=== PATIENT | male | born 1945 | race Caucasian/White ===

== ENCOUNTER 2019-09-10 17:51 | Emergency (ER) | payer MEDICARE, OTHER ==
[~2019-09-10] VITALS: Ht 170.2 cm; Wt 119.7 kg
--- NOTE | 2019-09-10 18:00 | NUR ---
patient Gavin, from home, c/o sob for weeks, nitro spray x 5 given PLANS EXAMINER. On 02 @2lpm via nc, connected to the monitor and pulse ox. kept comfortable, will continue to monitor accordingly.
[2019-09-10] MEDS ORDERED: ASPI-1169 PO (18:18)
[2019-09-10] MEDS ORDERED: METO1TAB10 PO (18:18)
[2019-09-10] MEDS ORDERED: AMLO10TA7 PO (18:18)
[2019-09-10] MEDS ORDERED: SIMV-49 PO (18:18)
[2019-09-10] MEDS ORDERED: OMEP20CA15 PO (18:18)
[2019-09-10] MEDS ORDERED: METF-440 PO (18:18)
[2019-09-10] MEDS ORDERED: IRBE150T28 PO (18:18)
[2019-09-10 18:24] LABS: BASOPHILS # (AUTO) 0.1 /CMM (0.0-0.2); BASOPHILS % (AUTO) 0.9 % (0.0-2.0); EOSINOPHILS % (AUTO) 2.6 % (0.0-6.0); HEMATOCRIT 34 % (39-51); HEMOGLOBIN 10.8 g/dL (13.5-17.5); LYMPHOCYTES # (AUTO) 0.9 /CMM (0.8-4.8); LYMPHOCYTES % (AUTO) 11.8 % (20.0-44.0); MEAN CORPUSCULAR HGB CONC 32 g/dl (31.0-36.0); MEAN CORPUSCULAR VOLUME 92 fL (80-96); MONOCYTES # (AUTO) 0.7 /CMM (0.1-1.30); MONOCYTES % (AUTO) 8.4 % (2.0-12.0); NEUTROPHILS # (AUTO) 5.9 /CMM (1.8-8.9); NEUTROPHILS % (AUTO) 76.3 % (43.0-81.0); PLATELET COUNT (AUTO) 223 /CMM (150-450); RED BLOOD CELL COUNT(AUTO) 3.66 MIL/uL (4.5-6.0); WHITE BLOOD COUNT (AUTO) 7.8 K/uL (4.3-11.0)
--- NOTE | 2019-09-10 18:30 | NUR ---
missile tracking technician at bedside for exam
--- NOTE | 2019-09-10 18:32 | NUR ---
CALLED NURSING SUP FOR TELE BED.
[2019-09-10 18:46] LABS: ALANINE AMINOTRANSFERASE 10 U/L (12-78); ALBUMIN 3.2 g/dL (3.4-5.0); ALKALINE PHOSPHATASE 97 U/L (46-116); ASPARTATE AMINOTRANSFERASE 12 U/L (15-37); B-TYPE NATRIURETIC PEPTIDE 2118 PG/ML (0-125); BILIRUBIN,DIRECT 0.4 mg/dL (0.0-0.2); BILIRUBIN,TOTAL 0.9 mg/dL (0.2-1.0); CALCIUM, SERUM 9.4 mg/dL (8.5-10.1); CARBON DIOXIDE 28 mmol/L (21-32); GLUCOSE 140 mg/dL (74-106); TOTAL PROTEIN, SERUM 7.5 g/dL (6.4-8.2); UREA NITROGEN, BLOOD 24 mg/dL (7-18)
[2019-09-10 19:01] LABS: CHLORIDE 106 mmol/L (98-107); POTASSIUM 4.1 mmol/L (3.5-5.1); SODIUM SERUM 142 mmol/L (136-145); THYROID STIMULATING HORMONE 9.417 uIU/mL (0.358-3.74)
--- NOTE | 2019-09-10 19:15 | NUR ---
REPORT REC'D FROM ЕКАТЕРИНА PATRICIO FOR MICHELLE.
[2019-09-10] MEDS ORDERED: Magnesium 1GM/D5W 100ML PREMIX 100 ML IV ONE (19:30)
[2019-09-10] MEDS ORDERED: Magnesium 1GM/D5W 100ML PREMIX 100 ML IV SCH (19:30)
[2019-09-10] MEDS ORDERED: Magnesium 1GM/D5W 100ML PREMIX 100 ML IV STA (19:32)
--- NOTE | 2019-09-10 19:37 | NUR ---
CLARIFIED MAGNESIUM ORDER WITH DR SCHMITZ. 1 GM IV OVER 1 HR.
--- NOTE | 2019-09-10 19:40 | NUR ---
DR SCHMITZ IS AT THE BEDSIDE SPEAKING TO THE PT AND FAMILY.
[2019-09-10] MEDS ORDERED: FUROSEMIDE 40 MG/4 ML VIAL ONE (19:50)
--- NOTE | 2019-09-10 19:55 | NUR ---
PT REC'ING MEDICATION ORDERED.
[2019-09-10] MEDS ORDERED: FUROSEMIDE 40 MG/4 ML VIAL IV ONE (20:00)
--- NOTE | 2019-09-10 20:05 | NUR ---
DR SCHMITZ IS AT THE BEDSIDE.
--- NOTE | 2019-09-10 20:16 | NUR ---
URINAL EMPTIED. APPROX 200 ML YELLOW URINE OUTPUT NOTED.
--- NOTE | 2019-09-10 20:18 | NUR ---
PT'S HR IS RANGING FROM 109-125. PT'S RESP ARE LABORED AND PT IS TACHYPNEIC AT [address] SCHMITZ IS NOTIFIED.
--- NOTE | 2019-09-10 20:20 | NUR ---
PT ACCEPTED TO [facility], BED 210-A. # FOR REPORT [phone].
--- NOTE | 2019-09-10 20:26 | NUR ---
[facility] ETA [id number]
--- NOTE | 2019-09-10 20:26 | NUR ---
PT IS USING THE URINAL.
--- NOTE | 2019-09-10 20:29 | NUR ---
CALLING REPORT TO ЕКАТЕРИНА MCFARLAND AT [facility].
--- NOTE | 2019-09-10 20:38 | NUR ---
REPORT GIVEN TO RICHELLE MILLER AT [facility]
--- NOTE | 2019-09-10 20:44 | NUR ---
URINAL EMPTIED AGAIN. APPROX 225ML YELLOW URINE OUTPUT NOTED.
--- NOTE | 2019-09-10 21:03 | NUR ---
URINAL EMPTIED AGAIN. APPROX 200 ML PALE YELLOW URINE OUTPUT NOTED.
--- NOTE | 2019-09-10 21:28 | NUR ---
PT IS USING THE URINAL. PT'S FAMILY RETURNED.
--- NOTE | 2019-09-10 21:41 | NUR ---
URINAL EMPTIED AGAIN. APPROX 375 ML PALE YELLOW URINE OUTPUT NOTED.
--- NOTE | 2019-09-10 22:11 | NUR ---
200ML URINE OUTPUT NOTED. URINAL EMPTIED.
--- NOTE | 2019-09-10 22:15 | NUR ---
REPORT GIVEN TO NIALL RAMIREZ.
--- NOTE | 2019-09-10 22:21 | NUR ---
URINAL EMPTIED PRIOR TO PT LEAVING. APPROX 175ML PALE URINE OUTPUT NOTED. TOTAL OUTPUT IS 1275ML. PT REC'D A FRESH URINAL FOR THE TRANSPORT.
[2019-09-10 22:22] VITALS: BP 138/75
--- NOTE | 2019-09-10 22:26 | NUR ---
PT BEING TRANFERED OUT VIA AMBULANCE. VSS.
== END 2019-09-10 22:26 ==
LOC: ER 17:53
DX: J96.00 Acute respiratory failure, unspecified whether with hypoxia or hypercapnia (principal); I11.0 Hypertensive heart disease with heart failure; I50.9 Heart failure, unspecified; E03.9 Hypothyroidism, unspecified; E83.42 Hypomagnesemia; I48.91 Unspecified atrial fibrillation; D64.9 Anemia, unspecified; E11.9 Type 2 diabetes mellitus without complications; E78.5 Hyperlipidemia, unspecified; Z79.82 Long term (current) use of aspirin; Z79.899 Other long term (current) drug therapy
CPT/HCPCS: 36415; 71045; 80048; 80076; 83735; 83880; 84439; 84443; 84484; 85025; 85378; 85730; 87081; 93005 ×3; 93970; 96365; 96375; 99291; J1940; J3475

== ENCOUNTER 2021-05-31 09:06 | Inpatient (IN) | payer MEDICARE, BC ==
[~2021-05-31] VITALS: Ht 167.6 cm; Wt 102.1 kg
[~2021-05-31 09:06] MED LIST: AMLO-213 PO; ASPI-1169 PO; IRBE150T28 PO; METF-440 PO; METO1TAB10 PO; OMEP20CA15 PO; SIMV-49 PO
--- NOTE | 2021-05-31 09:17 | NUR ---
TO ER 4, LEONA [id number] "From Home C/O Feeling sick last couple weeks diarrhea/Nausea, AAOX3, breathing even and non labored, connected to monitor
[2021-05-31 09:45] LABS: BASOPHILS # (AUTO) 0.1 K/uL (0.0-0.2); EOSINOPHILS % (AUTO) 1.9 % (0.0-6.0); HEMATOCRIT 33 % (39-51); HEMOGLOBIN 10.6 g/dL (13.5-17.5); LYMPHOCYTES # (AUTO) 1.6 K/uL (0.8-4.8); LYMPHOCYTES % (AUTO) 15.7 % (20.0-44.0); MEAN CORPUSCULAR HGB CONC 32 g/dl (31.0-36.0); MEAN CORPUSCULAR VOLUME 99 fL (80-96); MONOCYTES # (AUTO) 0.6 K/uL (0.1-1.30); MONOCYTES % (AUTO) 5.8 % (2.0-12.0); NEUTROPHILS # (AUTO) 7.5 K/uL (1.8-8.9); NEUTROPHILS % (AUTO) 75.6 % (43.0-81.0); PLATELET COUNT (AUTO) 231 K/uL (150-450); RED BLOOD CELL COUNT(AUTO) 3.32 MIL/uL (4.5-6.0); WHITE BLOOD COUNT (AUTO) 9.9 K/uL (4.3-11.0)
--- NOTE | 2021-05-31 10:02 | NUR ---
DR CASIANO AT BEDSIDE
--- NOTE | 2021-05-31 10:06 | NUR ---
URINE COLLECTED AND SENT TO LAB
[2021-05-31 10:22] LABS: BILIRUBIN,URINE NEGATIVE (NEGATIVE); COLOR,URINE YELLOW (YELLOW); LEUKOCYTE ESTERASE ,URINE NEGATIVE (NEGATIVE); NITRITE, URINE NEGATIVE (NEGATIVE); PROTEIN,URINE NEGATIVE (NEGATIVE); UGLUCOSE NEGATIVE (NEGATIVE); UROBILINOGEN,URINE 0.2 EU/dL (0.2)
[2021-05-31 10:22] LABS: CARBON DIOXIDE 13 mmol/L (21-32); CHLORIDE 99 mmol/L (98-107); GLUCOSE 122 mg/dL (74-106); POTASSIUM 5.8 mmol/L (3.5-5.1); SODIUM SERUM 134 mmol/L (136-145)
[2021-05-31 10:27] LABS: ALANINE AMINOTRANSFERASE 33 U/L (12-78); ALKALINE PHOSPHATASE 388 U/L (46-116); ASPARTATE AMINOTRANSFERASE 45 U/L (15-37); BILIRUBIN,DIRECT 0.3 mg/dL (0.0-0.2); BILIRUBIN,TOTAL 0.7 mg/dL (0.2-1.0); LIPASE 342 U/L (73-393); TOTAL PROTEIN, SERUM 7.9 g/dL (6.4-8.2)
[2021-05-31 10:33] LABS: CREATININE 8.2 mg/dL (0.6-1.3); UREA NITROGEN, BLOOD 156 mg/dL (7-18)
--- NOTE | 2021-05-31 10:41 | NUR ---
COVID ANTIGEN SWAB SENT TO LAB
--- NOTE | 2021-05-31 10:51 | NUR ---
CALLED NEPHROLOGY [phone] DR. PAN FERRARA.
[2021-05-31] MEDS ORDERED: Calcium Gluconate 1GM/10ML 4.65 MEQ in IV D5W 50 ML IV ONE (11:00)
[2021-05-31 11:05] LABS: MAGNESIUM 2.3 mg/dL (1.8-2.4); PHOSPHORUS 6.6 mg/dL (2.5-4.9)
--- NOTE | 2021-05-31 11:15 | NUR ---
BACK FROM CT
[2021-05-31] MEDS ORDERED: APIX5TAB PO (11:33)
[2021-05-31] MEDS ORDERED: LOSA100T31 PO (11:33)
[2021-05-31] MEDS ORDERED: PANT40TA49 PO (11:33)
[2021-05-31] MEDS ORDERED: CHOL100062 PO (11:33)
[2021-05-31] MEDS ORDERED: FERR325T23 PO (11:33)
[2021-05-31] MEDS ORDERED: BUME2TAB7 PO (11:33)
[2021-05-31] MEDS ORDERED: LEVO125T8 PO (11:33)
[2021-05-31] MEDS ORDERED: ASCO-352 PO (11:33)
[2021-05-31] MEDS ORDERED: METO-358 PO (11:33)
[2021-05-31] MEDS ORDERED: MAGN400T26 PO (11:33)
[2021-05-31] MEDS ORDERED: SENN-261 PO (11:33)
[2021-05-31] MEDS ORDERED: THIA100T74 PO (11:33)
[2021-05-31] MEDS ORDERED: ATOR40TA PO (11:33)
--- NOTE | 2021-05-31 11:55 | NUR ---
[facility] CALLED CURTAIN FELLER BLINDSTITCH PAGED.
--- NOTE | 2021-05-31 11:56 | NUR ---
AGAIN CALLED NEPHROLOGY [phone] DR. PAN FERRARA.
[2021-05-31] MEDS ORDERED: IV NS 0.9% 1,000 ML BAG IV ONE (12:30)
[2021-05-31] MEDS ORDERED: SENNOSIDES 8.6 MG TABLET PO PRN (12:30)
--- NOTE | 2021-05-31 12:49 | NUR ---
MRSA SWAB COLLECTED AND SENT TO LAB. PATIENT'S BELONGINGS LIST DONE.
[2021-05-31] MEDS ORDERED: Z GUARD REMEDY 2 OZ OINT TP PRN (13:00)
[2021-05-31] MEDS ORDERED: IV NS 0.9% 1,000 ML IV PRN (13:00)
[2021-05-31] MEDS ORDERED: ZOLPIDEM TARTRATE 5 MG TABLET PO PRN (13:00)
[2021-05-31] MEDS ORDERED: MAGNESIUM HYDROXIDE 30 ML UDC PO PRN (13:00)
[2021-05-31] MEDS ORDERED: DEXTROSE 50%-WATER 50 ML DISP.SYRIN IV PRN (13:00)
[2021-05-31] MEDS ORDERED: MAG HYDROX/AL HYDROX/SIMETH 30 ML UDC PO PRN (13:00)
[2021-05-31] MEDS ORDERED: ONDANSETRON HCL/PF 4 MG/2 ML VIAL IVP PRN (13:00)
--- NOTE | 2021-05-31 13:12 | NUR ---
US AT BEDSIDE
--- NOTE | 2021-05-31 16:58 | NUR ---
room 314-1
[2021-05-31] MEDS ORDERED: MAGNESIUM OXIDE 400 MG TABLET PO SCH (17:00)
--- NOTE | 2021-05-31 17:22 | NUR ---
REPORT GIVEN TO LINDA WILLAMS. PT AWAITING TRANSFER TO FLOOR.
--- NOTE | 2021-05-31 17:30 | NUR ---
DELIVERY RN NOTE- 75 Y/O MALE BROUGHT IN FROM HOME W INCREASING MALAISE, DIARRHEA AND GENERAL DECLINE IN HEALTH. PT W PMHX - CHF, DIABETES, HTN, HLD, . PT AMBULATORY W ASSIST, VS STABLE ON TELE MONITOR SR W PAC /70'S. IV TO LFA 20G. PT ON RENAL STANDARD DIET, LABS - BUN 156 AND CREATININE 18.2. POSS HD TOMORROW. PT IS ALERT ORIENTED X 4, INTERACTIVE CALM AND COOPERATIVE. IN NO DISTRESS, DENIES PAIN OR DISCOMFORT OF ANY KIND. SIDE RAILS UP, BED LOCKED CALL LIGHT IN REACH, NEEDS ATTENDED, ORDERS RECEIVED AND COMPLIED WITH.
[2021-05-31] MEDS ORDERED: APIXABAN 2.5 MG TABLET PO SCH (18:00)
[2021-05-31] MEDS: IV NS 0.9% 1,000 ML IV PRN (18:40)
[2021-05-31] MEDS: BLOOD SUGAR DIAGNOSTIC 1 EACH STRIP VI SCH ×2 (18:49→22:05)
[2021-05-31] MEDS: ATORVASTATIN 40 MG TABLET PO SCH (18:53)
--- NOTE | 2021-05-31 19:30 | NUR ---
RN OPENING NOTE PATIENT IN BED AWAKE. PATIENT IS ABLE TO MAKE NEEDS KNOWN. A/O X 4. BREATHING EVEN AND UNLABORED, TOLERATING ROOM AIR. PATIENT IS SR 70S WITH BBB. PATIENT'S IV ACCESS PATENT AND INTACT WITH NS AT 100 ML/HR. SAFETY MEASURES IN PLACE: BED LOCKED AND IN LOWEST POSITION, CALL LIGHT WITHIN REACH. SIDE RAILS UP. WILL MONITOR PATIENT CLOSELY.
[2021-05-31 20:00] VITALS: BP 126/48
--- NOTE | 2021-05-31 20:00 | NUR ---
RN NOTE WAS NOTIFIED BY DR. MIRANDA VERBALLY THAT SHE HAS D/C'D THE ELIQUIS AND SUGGESTS FOR PATIENT ON HEPARIN. ALSO STATES THAT THE PATIENT WILL BE HAVING AN EGD, BUT SINCE PATIENT RECEIVED ELIQUIS TODAY, PATIENT IS UNABLE TO HAVE PROCEDURE BECAUSE ELIQUIS NEEDS TO BE HELD AT LEAST 48HRS PRIOR TO PROCEDURE. DR. MIRANDA STATES TO CONSULT CARDIO AND PMD. NOTIFIED RANULFO BARCLAY, INSTRUCTIONS WERE TO CONSULT WITH DR. SUAREZ, CLERK TELEVISION PRODUCTION.
--- NOTE | 2021-05-31 20:01 | NUR ---
RN NOTE NOTIFIED DR. SUAREZ REGARDING HEPARIN DOSING AND PLANNING OF EGD. AWAITING RESPONSE AND ORDERS.
--- NOTE | 2021-05-31 20:15 | NUR ---
RN NOTE DR. SUAREZ SAID THAT IT WILL BE UP TO DR. MIRANDA REGARDING HEPARIN DOSING AND EXPRESSED THAT PATIENT "NEEDS TO BE ON NOTHING FOR TWO DAYS" TO PREPARE FOR EGD. NOTIFIED DR. MIRANDA REGARDING DR. SUAREZ'S RESPONSE.
--- NOTE | 2021-05-31 20:30 | NUR ---
RN NOTE DR. MIRANDA DID NOT HAVE ANY ORDERS FOR HEPARIN. SHE SAID FOR PATIENT NOT TO BE ANY ANTICOAGULANTS FOR THE NEXT TWO DAYS AND THEN DECIDE AFTER THE TWO DAYS. CHARGE NURSE VANDANA JUAREZ.
[2021-05-31] MEDS: *INSULIN REGULAR(HUMULIN R)HUM 100 UNIT/ML VIAL SQ PRN (21:53)
--- NOTE | 2021-05-31 22:05 | NUR ---
RN NOTE OBTAINED AND WITNESSED CONSENT FOR CT CHEST WITHOUT CONTRAST.
[2021-06-01] VITALS: BP 101/46
[2021-06-01 04:50] VITALS: BP 101/46
[2021-06-01] MEDS: IV NS 0.9% 1,000 ML IV PRN (05:37)
[2021-06-01] MEDS: BLOOD SUGAR DIAGNOSTIC 1 EACH STRIP VI SCH ×4 (06:42→21:55)
--- NOTE | 2021-06-01 06:50 | NUR ---
RN CLOSING NOTE PATIENT IN BED AWAKE. PATIENT IS ABLE TO MAKE NEEDS KNOWN. A/O X 4. BREATHING EVEN AND UNLABORED, TOLERATING ROOM AIR. PATIENT IS SR 72 WITH BBB. PATIENT'S IV ACCESS PATENT AND INTACT WITH NS AT 100 ML/HR. PATIENT DOES NOT REPORT ANY PAIN OR DISCOMFORT. SAFETY MEASURES IN PLACE: BED LOCKED AND IN LOWEST POSITION, CALL LIGHT WITHIN REACH. SIDE RAILS UP. ALL NEEDS MET AND ATTENDED, ALL ORDERS CARRIED OUT. WILL ENDORSE TO DAY SHIFT NURSE FOR MICHELLE.
[2021-06-01 07:32] LABS: IRON, SERUM 37 ug/dl (50-175); TOTAL IRON BINDING CAPACITY 155 ug/dl (250-450)
[2021-06-01 07:46] LABS: PROSTATE SPECIFIC ANTIGEN SCR 4.19 ng/mL (0.00-4.00); THYROID STIMULATING HORMONE 1.392 uIU/mL (0.358-3.74)
[2021-06-01 07:52] LABS: BASOPHILS # (AUTO) 0.1 K/uL (0.0-0.2); BASOPHILS % (AUTO) 1.1 % (0.0-2.0); HEMATOCRIT 31 % (39-51); LYMPHOCYTES # (AUTO) 1.3 K/uL (0.8-4.8); LYMPHOCYTES % (AUTO) 15.5 % (20.0-44.0); MEAN CORPUSCULAR HGB CONC 32 g/dl (31.0-36.0); MEAN CORPUSCULAR VOLUME 102 fL (80-96); MONOCYTES # (AUTO) 0.6 K/uL (0.1-1.30); MONOCYTES % (AUTO) 6.8 % (2.0-12.0); NEUTROPHILS # (AUTO) 6.3 K/uL (1.8-8.9); NEUTROPHILS % (AUTO) 73.6 % (43.0-81.0); PLATELET COUNT (AUTO) 210 K/uL (150-450); RED BLOOD CELL COUNT(AUTO) 3.02 MIL/uL (4.5-6.0); WHITE BLOOD COUNT (AUTO) 8.6 K/uL (4.3-11.0)
[2021-06-01 07:56] LABS: CHOLESTEROL 80 mg/dL (<200); CREATINE KINASE, TOTAL 31 U/L (39-308); FERRITIN 371 ng/mL (8-388); HDL CHOLESTEROL 33 mg/dL (40-60); LDL 40 mg/dL (0-99); TRIGLYCERIDES 116 mg/dL (30-150)
[2021-06-01 08:00] VITALS: BP 126/56
--- NOTE | 2021-06-01 08:02 | NUR ---
TURNTABLE OPERATOR OPENING NOTE PATIENT IN BED AWAKE. A/O X 4, ABLE TO MAKE NEEDS KNOWN. ON ROOM AIR, BREATHING EVENLY AND UNLABORED. PATIENT IS SR 80. IV ACCESS ON LFA #20G NS AT 100 ML/HR, INTACT AND PATENT. PATIENT DOES NOT REPORT ANY PAIN OR DISCOMFORT. SAFETY MEASURES IN PLACE: BED LOCKED AND IN LOWEST POSITION, CALL LIGHT WITHIN REACH. SIDE RAILS UP X 2. WILL CONTINUE TO MONITOR.
[2021-06-01 08:13] LABS: ALANINE AMINOTRANSFERASE 36 U/L (12-78); ALBUMIN 2.7 g/dL (3.4-5.0); ALKALINE PHOSPHATASE 355 U/L (46-116); ASPARTATE AMINOTRANSFERASE 45 U/L (15-37); BILIRUBIN,DIRECT 0.3 mg/dL (0.0-0.2); BILIRUBIN,TOTAL 0.5 mg/dL (0.2-1.0); CALCIUM, SERUM 8.7 mg/dL (8.5-10.1); CARBON DIOXIDE 12 mmol/L (21-32); CHLORIDE 106 mmol/L (98-107); CREATININE 7.3 mg/dL (0.6-1.3); GLUCOSE 98 mg/dL (74-106); PHOSPHORUS 5.9 mg/dL (2.5-4.9); POTASSIUM 5.5 mmol/L (3.5-5.1); SODIUM SERUM 138 mmol/L (136-145); TOTAL PROTEIN, SERUM 6.9 g/dL (6.4-8.2)
[2021-06-01 08:16] LABS: UREA NITROGEN, BLOOD 145 mg/dL (7-18)
[2021-06-01] MEDS: PANTOPRAZOLE 40 MG TABLET.DR PO SCH (08:24)
[2021-06-01] MEDS: THIAMINE HCL 100 MG TABLET PO SCH (08:24)
[2021-06-01] MEDS: FERROUS SULFATE (325 MG) 325 MG/TAB TABLET PO SCH (08:24)
[2021-06-01] MEDS: LEVOTHYROXINE SODIUM 125 MCG TABLET PO SCH (08:24)
[2021-06-01] MEDS: CHOLECALCIFEROL 1,000 UNIT TABLET (VIT D3) PO SCH (08:24)
[2021-06-01] MEDS: METOPROLOL SUCCINATE 50 MG TAB.SR.24H PO SCH (08:25)
[2021-06-01] MEDS: ASCORBIC ACID 500 MG TABLET PO SCH (08:25)
[2021-06-01] MEDS ORDERED: ANESTHESIA TRAY IN PYXIS 1 EA TRAY MC ONE (11:26)
[2021-06-01 12:00] VITALS: BP 124/61
--- NOTE | 2021-06-01 14:44 | NUR ---
RN NOTE ORDERED CLEAR LIQUID DIET. PER RANULFO, DRY DIP WORKER KEEP PATIENT ON NPO POST MIDNIGHT. EGD SCHEDULED AT 10:00 AM TOMORROW.
[2021-06-01 16:00] VITALS: BP 132/63
[2021-06-01] MEDS: Sodium Bicarbonate 100 MEQ in IV D5W 1,000 ML IV SCH (16:15)
[2021-06-01] MEDS: ATORVASTATIN 40 MG TABLET PO SCH (17:22)
--- NOTE | 2021-06-01 18:47 | NUR ---
RN CLOSING NOTE PATIENT IN BED AWAKE. A/O X 4. ALL NEEDS HAVE BEEN MET AND ATTENDED. ON ROOM AIR, BREATHING EVENLY AND UNLABORED. PATIENT IS SR 73. IV ACCESS ON LFA #20G NA BICARB IN D5W RUNNING AT 100 ML/HR, INTACT AND PATENT. PATIENT DOES DENIES ANY PAIN OR DISCOMFORT AT THIS TIME. DUE MEDS GIVEN, ORDERD. SAFETY MEASURES IN PLACE: BED LOCKED AND IN LOWEST POSITION, CALL LIGHT WITHIN REACH, SIDE RAILS UP X 2. WILL ENDORSE TO FISHING BOAT MATE NURSE FOR MICHELLE.
--- NOTE | 2021-06-01 19:00 | NUR ---
PEA VINER MECHANIC OPENING NOTE RECEIVED PT RESTING IN BED. A/O X4, PT STABLE ON ROOM AIR. NO SOB NOTED, NO S/S OF RESPIRATORY DISTRESS. PT IS ON EXTERNAL LAMINATE FLOOR INSTALLER READING SINUS ARRHYTHMIA @ 63. NO C/O PAIN AT THIS TIME. IV ACCESS IN LEFT FOREARM G#20, INTACT, PATENT, AND FLUSHING WELL. SAFETY MEASURES MAINTAINED AT ALL TIMES. BED IN LOWEST, LOCKED POSITION, HOB ELEVATED, SIDE RAILS UP X2. CALL LIGHT AND TABLE WITHIN REACH. WILL CONTINUE WITH PLAN OF CARE.
[2021-06-01 20:00] VITALS: BP 125/67
--- NOTE | 2021-06-01 21:55 | NUR ---
BS 108. NO INSULIN GIVEN PER SLIDING SCALE .
[2021-06-01] MEDS: *INSULIN REGULAR(HUMULIN R)HUM 100 UNIT/ML VIAL SQ PRN (21:56)
[2021-06-02] VITALS (7 sets, daily range): BP systolic 112–154; BP diastolic 49–68
[2021-06-02] MEDS: Sodium Bicarbonate 100 MEQ in IV D5W 1,000 ML IV SCH ×3 (02:12→22:20)
[2021-06-02] MEDS: BLOOD SUGAR DIAGNOSTIC 1 EACH STRIP VI SCH ×4 (06:35→22:07)
[2021-06-02] MEDS: INSULIN REGULAR, HUMAN 100 UNIT/ML 3 ML VIAL SQ PRN (06:36)
--- NOTE | 2021-06-02 06:46 | NUR ---
@0630 pts OU=[id number], no insulin coverage..
[2021-06-02 06:50] LABS: BASOPHILS # (AUTO) 0.1 K/uL (0.0-0.2); EOSINOPHILS % (AUTO) 3.1 % (0.0-6.0); HEMATOCRIT 31 % (39-51); HEMOGLOBIN 10.2 g/dL (13.5-17.5); LYMPHOCYTES # (AUTO) 1.1 K/uL (0.8-4.8); MEAN CORPUSCULAR HGB CONC 33 g/dl (31.0-36.0); MEAN CORPUSCULAR VOLUME 99 fL (80-96); MONOCYTES # (AUTO) 0.6 K/uL (0.1-1.30); MONOCYTES % (AUTO) 7.4 % (2.0-12.0); NEUTROPHILS # (AUTO) 5.5 K/uL (1.8-8.9); NEUTROPHILS % (AUTO) 73.5 % (43.0-81.0); PLATELET COUNT (AUTO) 167 K/uL (150-450); RED BLOOD CELL COUNT(AUTO) 3.11 MIL/uL (4.5-6.0); WHITE BLOOD COUNT (AUTO) 7.4 K/uL (4.3-11.0)
[2021-06-02] MEDS: LEVOTHYROXINE SODIUM 125 MCG TABLET PO SCH (07:30)
[2021-06-02] MEDS: PANTOPRAZOLE 40 MG TABLET.DR PO SCH (07:30)
--- NOTE | 2021-06-02 07:30 | NUR ---
SCANNING SUPERVISOR OPENING NOTES RECEIVED PATIENT AWAKE ON BED AND A/O X4. ON ROOM AIR TOLERATING WELL WITH NO SOB NOTED. NOT IN DISTRESS. WITH NO COMPLAINTS OF PAIN OR DISCOMFORT AT THIS TIME. WITH IV ACCESS AT LEFT FOREARM G20 WITH IVF NS AT 100ML/HR, PATENT AND INTACT. FOR ESOPHAGOGASTROSCOPY TODAY. ON NPO. SAFETY MEASURES IN PLACE. CALL LIGHT WITHIN REACH. BED ON LOWEST AND LOCKED POSITION, SIDE RAILS UP X2. WILL CONTINUE TO MONITOR.
[2021-06-02 07:36] LABS: CALCIUM, SERUM 8.8 mg/dL (8.5-10.1); CARBON DIOXIDE 16 mmol/L (21-32); CHLORIDE 105 mmol/L (98-107); CREATININE 6.2 mg/dL (0.6-1.3); GLUCOSE 120 mg/dL (74-106); MAGNESIUM 1.9 mg/dL (1.8-2.4); PHOSPHORUS 5.3 mg/dL (2.5-4.9); POTASSIUM 5.2 mmol/L (3.5-5.1); SODIUM SERUM 138 mmol/L (136-145)
[2021-06-02 07:57] LABS: UREA NITROGEN, BLOOD 133 mg/dL (7-18)
[2021-06-02 08:06] LABS: AFP, TUMOR MARKER <0.9 ng/mL (0.0-8.3)
[2021-06-02] MEDS: FERROUS SULFATE (325 MG) 325 MG/TAB TABLET PO SCH (09:00)
[2021-06-02] MEDS: ASCORBIC ACID 500 MG TABLET PO SCH (09:00)
[2021-06-02] MEDS: THIAMINE HCL 100 MG TABLET PO SCH (09:00)
[2021-06-02] MEDS: CHOLECALCIFEROL 1,000 UNIT TABLET (VIT D3) PO SCH (09:00)
[2021-06-02] MEDS: METOPROLOL SUCCINATE 50 MG TAB.SR.24H PO SCH (09:00)
[2021-06-02 09:07] LABS: CARBOHYDRATE AG 19-9 181 U/mL (0-35)
[2021-06-02 13:06] LABS: *SPE A/G RATIO 0.8 (0.7-1.7); *SPE ALPHA-1-GLOBULIN 0.4 g/dL (0.0-0.4); *SPE ALPHA-2-GLOBULIN 0.8 g/dL (0.4-1.0); *SPE BETA GLOBULIN 0.8 g/dL (0.7-1.3); *SPE M-SPIKE Not Observed g/dL (Not Observed)
[2021-06-02] MEDS: ATORVASTATIN 40 MG TABLET PO SCH (17:51)
--- NOTE | 2021-06-02 18:41 | NUR ---
OVERLOCK SEWING MACHINE OPERATOR CLOSING NOTES PATIENT AWAKE ON BED AND A/O X4. ON ROOM AIR TOLERATING WELL WITH NO SOB NOTED. NOT IN DISTRESS. WITH NO COMPLAINTS OF PAIN OR DISCOMFORT AT THIS TIME. WITH IV ACCESS AT LEFT FOREARM G20 WITH IVF D5W WITH SODIUM BICARB AT 100ML/HR, PATENT AND INTACT. ON TELE MONITOR CURRENTLY READING SINUS RHYTHM AT 80BPM. SAFETY MEASURES IN PLACE. CALL LIGHT WITHIN REACH. BED ON LOWEST AND LOCKED POSITION, SIDE RAILS UP X2. WILL ENDORSE TO NEXT SHIFT FOR MICHELLE.
--- NOTE | 2021-06-02 20:30 | NUR ---
CERTIFIED ORTHOTIST/PEDORTHIST OPENING NOTES: RECEIVED PATIENT AWAKE IN BED, BED IN LOW POSITION, CALL LIGHTS WITHIN REACH, NO COMPLAIN OF PAIN AND DISCOMFORT AQT THIS TIME, PATIENT IS A/OX4 AMBULATORY, ON BRP, ABLE TO MAKE NEEDS KNOWN, WITH IV LINE AT LFO #20 WIT NA HCO3 IN D5W 1000ML @100ML/HR INFUSING WELL, PATIENT KEPT CLEAN AND DRY ALL NEEDS MET, WILL CONTINUE TO MONITOR.
[2021-06-03 04:01] VITALS: BP 127/62
[2021-06-03] MEDS: ACETAMINOPHEN 325 MG TABLET PO PRN (04:01)
[2021-06-03 06:22] LABS: BASOPHILS # (AUTO) 0.1 K/uL (0.0-0.2); EOSINOPHILS % (AUTO) 3.1 % (0.0-6.0); HEMATOCRIT 26 % (39-51); HEMOGLOBIN 8.8 g/dL (13.5-17.5); LYMPHOCYTES # (AUTO) 0.9 K/uL (0.8-4.8); LYMPHOCYTES % (AUTO) 11.4 % (20.0-44.0); MEAN CORPUSCULAR HGB CONC 34 g/dl (31.0-36.0); MEAN CORPUSCULAR VOLUME 97 fL (80-96); MONOCYTES # (AUTO) 0.7 K/uL (0.1-1.30); MONOCYTES % (AUTO) 9.1 % (2.0-12.0); NEUTROPHILS # (AUTO) 5.7 K/uL (1.8-8.9); NEUTROPHILS % (AUTO) 75.4 % (43.0-81.0); PLATELET COUNT (AUTO) 152 K/uL (150-450); WHITE BLOOD COUNT (AUTO) 7.6 K/uL (4.3-11.0)
--- NOTE | 2021-06-03 06:48 | NUR ---
BRASS AND WIND INSTRUMENT REPAIRER CLOSING NOTES: PATIENT SLEEP IN BED COMFORTABLY, BED IN LOW POSITION, CALL LIGHTS WITHIN REACH, O COMPLAIN OF PAIN AND DISCOMFORT AT THIS TIME, PATIENT IS A/O X4 ABLE TO EXPRESS NEEDS, BRP WITH SUPERVISION, WITH IV LINE AT LFA #20 WITH ONGOING NA HCO3 ON D5W 1000ML @100ML PER HOUR INFUSING WELL, PATIENT ON TELEMONITORING SR-70 WITH BBB AND ARRHYTHMIA, ASYMPTOMATIC PATIENT KEPT CLEAN AND DRY, ALL NEEDS MET, ENDORSE TO INCOMING SHIFT.
[2021-06-03 06:52] LABS: ALANINE AMINOTRANSFERASE 32 U/L (12-78); ALBUMIN 2.2 g/dL (3.4-5.0); ALKALINE PHOSPHATASE 361 U/L (46-116); ASPARTATE AMINOTRANSFERASE 40 U/L (15-37); BILIRUBIN,TOTAL 0.6 mg/dL (0.2-1.0); CALCIUM, SERUM 8.1 mg/dL (8.5-10.1); CARBON DIOXIDE 18 mmol/L (21-32); CHLORIDE 105 mmol/L (98-107); CREATININE 5.7 mg/dL (0.6-1.3); GLUCOSE 129 mg/dL (74-106); MAGNESIUM 1.7 mg/dL (1.8-2.4); PHOSPHORUS 4.6 mg/dL (2.5-4.9); POTASSIUM 4.6 mmol/L (3.5-5.1); SODIUM SERUM 138 mmol/L (136-145); TOTAL PROTEIN, SERUM 6.1 g/dL (6.4-8.2)
[2021-06-03 07:11] LABS: UREA NITROGEN, BLOOD 113 mg/dL (7-18)
[2021-06-03] MEDS: BLOOD SUGAR DIAGNOSTIC 1 EACH STRIP VI SCH ×4 (07:30→21:11)
--- NOTE | 2021-06-03 07:30 | NUR ---
WELDING OPERATOR OPENING NOTES: RECEIVED PATIENT AWAKE IN BED, A/O X4. IN NO APPARENT DISTRESS NOTED BREATHING EVEN AND UNLABORED. ON ROOM AIR, TOLERATING WELL. NO COMPLAIN OF PAIN AND DISCOMFORT AT THIS TIME.PATIENT WITH IV LINE AT LFA #20 WITH ONGOING NA HCO3 ON D5W 1000ML @100ML PER/ HR, INFUSING WELL,.PATIENT ON TELEMONITORING WITH SR-88 WITH BBB, NO CARDIAC DISTRESS NOTED. BED ON LOWEST LOCKED POSITION. CALL LIGHT AND BEDSIDE TABLE WITHIN EASY REACH. SAFETY MEASURES IN PLACE. WILL CONTINUE TO MONITOR PT. ACCDGLY..
[2021-06-03 08:00] VITALS: BP 117/69
[2021-06-03] MEDS: CHOLECALCIFEROL 1,000 UNIT TABLET (VIT D3) PO SCH (09:15)
[2021-06-03] MEDS: THIAMINE HCL 100 MG TABLET PO SCH (09:16)
[2021-06-03] MEDS: LEVOTHYROXINE SODIUM 125 MCG TABLET PO SCH (09:16)
[2021-06-03] MEDS: FERROUS SULFATE (325 MG) 325 MG/TAB TABLET PO SCH (09:16)
[2021-06-03] MEDS: PANTOPRAZOLE 40 MG TABLET.DR PO SCH (09:16)
[2021-06-03] MEDS: ASCORBIC ACID 500 MG TABLET PO SCH (09:17)
[2021-06-03] MEDS: METOPROLOL SUCCINATE 50 MG TAB.SR.24H PO SCH (09:17)
[2021-06-03] MEDS: Sodium Bicarbonate 100 MEQ in IV D5W 1,000 ML IV SCH ×2 (10:14→20:06)
[2021-06-03] MEDS: Magnesium 1GM/D5W 100ML PREMIX 100 ML IV SCH ×2 (11:01→12:29)
[2021-06-03] MEDS: INSULIN REGULAR, HUMAN 100 UNIT/ML 3 ML VIAL SQ PRN (12:42)
--- NOTE | 2021-06-03 13:55 | NUR ---
RN NOTES PT NOTED WITH LOW LEVEL MG 1.7 THIS MORNING, ADMINISTERED MG 1GM IV X2 DOSES.
[2021-06-03 16:00] VITALS: BP 126/60
[2021-06-03] MEDS: ATORVASTATIN 40 MG TABLET PO SCH (17:01)
--- NOTE | 2021-06-03 18:31 | NUR ---
NATIONAL SERVICE OFFICER CLOSING NOTES: PATIENT AWAKE IN BED, A/O X4. IN NO APPARENT DISTRESS NOTED BREATHING EVEN AND UNLABORED. ON ROOM AIR, TOLERATING WELL. NO COMPLAIN OF PAIN AND DISCOMFORT AT THIS TIME.PATIENT WITH IV LINE AT LFA #20 WITH ONGOING NA HCO3 ON D5W 1000ML @100ML PER/ HR, INFUSING WELL,.PATIENT ON TELEMONITORING WITH SR-88, NO CARDIAC DISTRESS NOTED. BED ON LOWEST LOCKED POSITION. CALL LIGHT AND BEDSIDE TABLE WITHIN EASY REACH. SAFETY MEASURES IN PLACE. WILL ENDORSED PT. TO CRIMINAL INTELLIGENCE SPECIALIST NURSE FOR CONTINUITY OF CARE.
[2021-06-03 20:00] VITALS: BP 130/66
--- NOTE | 2021-06-03 20:32 | NUR ---
TELE OPENING NOTES Patient is A&Ox4. Says he feels okay but would like to catch upon sleep. No signs of distress. IV infusing sodium bicarb in D5W at 100cc/hr to LFA #18G. Safety measures in place. Will continue to monitor.
[2021-06-04 00:39] VITALS: BP 123/61
[2021-06-04] MEDS: ACETAMINOPHEN 325 MG TABLET PO PRN (02:38)
[2021-06-04 04:00] VITALS: BP 123/59
[2021-06-04] MEDS: Sodium Bicarbonate 100 MEQ in IV D5W 1,000 ML IV SCH ×2 (04:52→16:16)
[2021-06-04] MEDS: PANTOPRAZOLE 40 MG TABLET.DR PO SCH ×2 (06:39→08:32)
[2021-06-04] MEDS: LEVOTHYROXINE SODIUM 125 MCG TABLET PO SCH ×2 (06:39→08:31)
[2021-06-04] MEDS: INSULIN REGULAR, HUMAN 100 UNIT/ML 3 ML VIAL SQ PRN ×3 (06:40→17:06)
[2021-06-04] MEDS: BLOOD SUGAR DIAGNOSTIC 1 EACH STRIP VI SCH ×4 (06:42→21:36)
[2021-06-04 06:44] LABS: BASOPHILS # (AUTO) 0.1 K/uL (0.0-0.2); BASOPHILS % (AUTO) 0.9 % (0.0-2.0); EOSINOPHILS % (AUTO) 3.5 % (0.0-6.0); HEMATOCRIT 27 % (39-51); LYMPHOCYTES # (AUTO) 1.1 K/uL (0.8-4.8); LYMPHOCYTES % (AUTO) 14.5 % (20.0-44.0); MEAN CORPUSCULAR HGB CONC 34 g/dl (31.0-36.0); MEAN CORPUSCULAR VOLUME 97 fL (80-96); MONOCYTES # (AUTO) 0.7 K/uL (0.1-1.30); MONOCYTES % (AUTO) 8.5 % (2.0-12.0); NEUTROPHILS # (AUTO) 5.7 K/uL (1.8-8.9); NEUTROPHILS % (AUTO) 72.6 % (43.0-81.0); PLATELET COUNT (AUTO) 159 K/uL (150-450); RED BLOOD CELL COUNT(AUTO) 2.73 MIL/uL (4.5-6.0); WHITE BLOOD COUNT (AUTO) 7.9 K/uL (4.3-11.0)
[2021-06-04 06:59] LABS: CALCIUM, SERUM 8.2 mg/dL (8.5-10.1); CARBON DIOXIDE 20 mmol/L (21-32); CHLORIDE 106 mmol/L (98-107); CREATININE 4.8 mg/dL (0.6-1.3); GLUCOSE 130 mg/dL (74-106); MAGNESIUM 1.9 mg/dL (1.8-2.4); POTASSIUM 4.4 mmol/L (3.5-5.1); SODIUM SERUM 138 mmol/L (136-145)
--- NOTE | 2021-06-04 07:01 | NUR ---
Patient has been A&Ox4 overnight sleeping intermittently but wakes to urinate during night. Denies any pain or discomfort. No signs of distress. No hypo or hyperglycemic reactions noted. No overnight events.
[2021-06-04 07:09] LABS: UREA NITROGEN, BLOOD 105 mg/dL (7-18)
--- NOTE | 2021-06-04 07:24 | NUR ---
GRADUATE TEACHING ASSOCIATE OPENING NOTES: RECEIVED PATIENT AWAKE IN BED, A/O X4. IN NO APPARENT DISTRESS NOTED BREATHING EVEN AND UNLABORED. ON ROOM AIR, TOLERATING WELL. NO COMPLAIN OF PAIN AND DISCOMFORT AT THIS TIME.PATIENT WITH IV ACCESS AT LFA #20 WITH ONGOING NA HCO3 ON D5W 1000ML @100ML PER/ HR, INFUSING WELL,.PATIENT ON TELEMONITORING WITH SR WITH BB AND PAC CURRENT HR IS 66, NO CARDIAC DISTRESS NOTED. BED ON LOWEST LOCKED POSITION. CALL LIGHT AND BEDSIDE TABLE WITHIN EASY REACH. SAFETY MEASURES IN PLACE. WILL CONTINUE TO MONITOR PATIENT ACCDGLY.
[2021-06-04 08:00] VITALS: BP 126/58
[2021-06-04] MEDS: CHOLECALCIFEROL 1,000 UNIT TABLET (VIT D3) PO SCH (08:31)
[2021-06-04] MEDS: FERROUS SULFATE (325 MG) 325 MG/TAB TABLET PO SCH (08:31)
[2021-06-04] MEDS: ASCORBIC ACID 500 MG TABLET PO SCH (08:31)
[2021-06-04] MEDS: THIAMINE HCL 100 MG TABLET PO SCH (08:31)
[2021-06-04] MEDS: METOPROLOL SUCCINATE 50 MG TAB.SR.24H PO SCH (08:40)
[2021-06-04 16:00] VITALS: BP 146/71
[2021-06-04] MEDS: SOD FERRIC GLUC 125 MG in IV NS 0.9% 100 ML IV SCH (16:47)
[2021-06-04] MEDS: ATORVASTATIN 40 MG TABLET PO SCH (17:12)
--- NOTE | 2021-06-04 18:52 | NUR ---
MS RN CLOSING NOTES: PATIENT IN BED WATCHING TV AT THIS TIME. HOB ELEVATED. A/O X4. ABLE TO EXPRESS NEEDS. ON ROOM AIR,BREATHING EVEN AND UNLABORED. PT FOR CT GUIDED NEEDLE LIVER MASS BIOPSY TOMORROW, CONSENT SIGNED BY PT. NPO TO BE ENFORCED AFTER MIDNIGHT. IV ACCESS ON LFA G#20 INTACT WITH ONGOING NA HCO3 ON D5W 1000ML @100ML PER HOUR INFUSING WELL. ALL NEEDS MET. SAFETY MEASURES IN PLACE AND MAINTAINED AT ALL TIMES. BED ALARM ON, BED IN LOW AND LOCKED POSITION, CALL LIGHT AND TABLE WITHIN EASY REACH, SIDE RAILS UP X2. WILL ENDORSED TO UNDERWRITING ANALYST NURSE FOR CONTINUITY OF CARE.
--- NOTE | 2021-06-04 19:56 | NUR ---
Patient A&Ox4, currently sitting in bed no signs of distress. Denies pain or discomfort at this time. Reminded pt. will be NPO after midnight for CT needle biopsy for liver mass. Patient is agreeable. Currently on sodium bicarb in D5W to LFA #20G at 100cc/hr. IV flushed and patent. All safety measures in place. Will continue to monitor patient.
[2021-06-04 22:38] VITALS: BP 129/56
[2021-06-05] MEDS: Sodium Bicarbonate 100 MEQ in IV D5W 1,000 ML IV SCH ×3 (00:54→20:33)
--- NOTE | 2021-06-05 01:27 | NUR ---
Patient only has #22G IV, needs atleast #20G for procedure in AM. Went into room pt. is awake but says he is too tired and would like to do it in AM since he has already been poked by lab and for IV earlier today. Will try again in AM.
--- NOTE | 2021-06-05 06:47 | NUR ---
Unable to get #20G IV on patient who was finally agreeable to try. Will see if AM can establish adequate IV access d/t time.
[2021-06-05 06:48] LABS: BASOPHILS # (AUTO) 0.1 K/uL (0.0-0.2); EOSINOPHILS % (AUTO) 2.3 % (0.0-6.0); HEMATOCRIT 25 % (39-51); HEMOGLOBIN 8.4 g/dL (13.5-17.5); LYMPHOCYTES # (AUTO) 1.2 K/uL (0.8-4.8); LYMPHOCYTES % (AUTO) 15.5 % (20.0-44.0); MEAN CORPUSCULAR HGB CONC 34 g/dl (31.0-36.0); MEAN CORPUSCULAR VOLUME 96 fL (80-96); MONOCYTES # (AUTO) 0.7 K/uL (0.1-1.30); MONOCYTES % (AUTO) 9.3 % (2.0-12.0); NEUTROPHILS # (AUTO) 5.3 K/uL (1.8-8.9); NEUTROPHILS % (AUTO) 71.9 % (43.0-81.0); PLATELET COUNT (AUTO) 143 K/uL (150-450); WHITE BLOOD COUNT (AUTO) 7.4 K/uL (4.3-11.0)
--- NOTE | 2021-06-05 06:48 | NUR ---
Patient has been A&Ox4 overnight. stable. Sleeping intermittently urinating frequently during night. Had 1 episode of nausea relieved by PRN Zofran. No other overnight issues. sodium bicarb in d5w still infusing to R wrist #22G PIV.
[2021-06-05] MEDS: BLOOD SUGAR DIAGNOSTIC 1 EACH STRIP VI SCH ×4 (07:03→22:33)
[2021-06-05 07:07] LABS: CALCIUM, SERUM 7.9 mg/dL (8.5-10.1); CARBON DIOXIDE 23 mmol/L (21-32); CHLORIDE 104 mmol/L (98-107); CREATININE 4.4 mg/dL (0.6-1.3); GLUCOSE 116 mg/dL (74-106); MAGNESIUM 1.7 mg/dL (1.8-2.4); PHOSPHORUS 3.9 mg/dL (2.5-4.9); POTASSIUM 4.3 mmol/L (3.5-5.1); SODIUM SERUM 138 mmol/L (136-145)
--- NOTE | 2021-06-05 07:45 | NUR ---
RN OPENING NOTE PT AWAKE IN BED. ON RA WITH NO SOB OR RESPIRATORY DISTRESS PRESENT. A/O X4 AND PERSIAN SPEAKING. NO COMPLAINT OF PAIN OR NAUSEA. NO DISPENSING AND MEASURING OPTICIAN PRESENT. NO EDEMA PRESENT. SELF AMBULATORY WITH BATHROOM PRIVILEGES. SKIN IS INTACT. NPO POST MIDNIGHT FOR PROCEDURE. CONSENT IN CHART. IV PRESENT IN R WRIST 20G AND FLUSHES WELL. BICARB RUNNING AT 100 ML/HR. LABS AND ORDERS REVIEWED. SAFETY MEASURES IN MEASURES. BED LOWERED. SIDE RAILS RAISED. CALL LIGHT WITHIN REACH. WILL CONTINUE TO MONITOR.
[2021-06-05 08:04] LABS: UREA NITROGEN, BLOOD 86 mg/dL (7-18)
[2021-06-05] MEDS: CHOLECALCIFEROL 1,000 UNIT TABLET (VIT D3) PO SCH (08:38)
[2021-06-05] MEDS: ASCORBIC ACID 500 MG TABLET PO SCH (08:38)
[2021-06-05] MEDS: METOPROLOL SUCCINATE 50 MG TAB.SR.24H PO SCH (08:38)
[2021-06-05] MEDS: THIAMINE HCL 100 MG TABLET PO SCH (08:38)
[2021-06-05] MEDS: FERROUS SULFATE (325 MG) 325 MG/TAB TABLET PO SCH (08:38)
[2021-06-05] MEDS: Magnesium 1GM/D5W 100ML PREMIX 100 ML IV SCH ×2 (13:56→17:30)
[2021-06-05] MEDS: SOD FERRIC GLUC 125 MG in IV NS 0.9% 100 ML IV SCH (14:34)
--- NOTE | 2021-06-05 14:58 | NUR ---
RN NOTE PT MOVED TO ROOM 312-1.
[2021-06-05] MEDS: ACETAMINOPHEN 325 MG TABLET PO PRN (16:01)
[2021-06-05 16:39] VITALS: BP 124/64
[2021-06-05] MEDS: ATORVASTATIN 40 MG TABLET PO SCH (17:30)
--- NOTE | 2021-06-05 18:38 | NUR ---
RN CLOSING NOTE PT AWAKE IN BED. ON RA WITH NO SOB OR RESPIRATORY DISTRESS PRESENT. A/O X4 AND TAMAZIGHT SPEAKING. NO COMPLAINT OF PAIN OR NAUSEA. NO SHIP FASTENER PRESENT. NO EDEMA PRESENT. SELF AMBULATORY WITH BATHROOM PRIVILEGES. SKIN IS INTACT. IV PRESENT IN R WRIST 20G AND FLUSHES WELL. BICARB RUNNING AT 100 ML/HR. LABS AND ORDERS REVIEWED. SAFETY MEASURES IN MEASURES. BED LOWERED. SIDE RAILS RAISED. CALL LIGHT WITHIN REACH. WILL GIVE REPORT TO NIGHT NURSE FOR MICHELLE.
--- NOTE | 2021-06-05 19:20 | NUR ---
MS/RN OPENING NOTE RECEIVED PATIENT RESTING IN BED. AWAKE, ALERT AND ORIENTED X 4. ABLE TO MAKE NEEDS KNOWN. DENIES PAIN AT THIS TIME. CONTINUES ON ROOM AIR WITH NO S/SX OF RESPIRATORY DISTRESS NOTED. IV ACCESS TO RIGHT WRIST #22G INTACT AND PATENT. CONTINUES ON IVF NA BICARB @ 100ML/HR. CALL LIGHT WITHIN REACH. ASPIRATION, FALL AND SAFETY PRECAUTIONS MAINTAINED. WILL CONTINUE TO MONITOR.
[2021-06-05 20:00] VITALS: BP 125/58
[2021-06-06] MEDS: ACETAMINOPHEN 325 MG TABLET PO PRN ×3 (05:28→20:29)
[2021-06-06 06:18] LABS: BASOPHILS # (AUTO) 0.1 K/uL (0.0-0.2); BASOPHILS % (AUTO) 0.9 % (0.0-2.0); EOSINOPHILS % (AUTO) 2.7 % (0.0-6.0); HEMATOCRIT 26 % (39-51); HEMOGLOBIN 8.9 g/dL (13.5-17.5); LYMPHOCYTES # (AUTO) 1.1 K/uL (0.8-4.8); MEAN CORPUSCULAR HGB CONC 34 g/dl (31.0-36.0); MEAN CORPUSCULAR VOLUME 96 fL (80-96); MONOCYTES # (AUTO) 0.8 K/uL (0.1-1.30); NEUTROPHILS # (AUTO) 5.8 K/uL (1.8-8.9); NEUTROPHILS % (AUTO) 72.4 % (43.0-81.0); PLATELET COUNT (AUTO) 153 K/uL (150-450); RED BLOOD CELL COUNT(AUTO) 2.74 MIL/uL (4.5-6.0); WHITE BLOOD COUNT (AUTO) 7.9 K/uL (4.3-11.0)
--- NOTE | 2021-06-06 06:20 | NUR ---
MS/RN CLOSING NOTE PATIENT CURRENTLY RESTING IN BED. AWAKE, ALERT AND ORIENTED X 4. ABLE TO MAKE NEEDS KNOWN. DENIES PAIN AT THIS TIME. CONTINUES ON ROOM AIR WITH NO S/SX OF RESPIRATORY DISTRESS NOTED. IV ACCESS TO RIGHT WRIST #22G INTACT AND PATENT. CONTINUES ON IVF NA BICARB @ 100ML/HR. AMBULATORY WITH STEADY GAIT. CALL LIGHT WITHIN REACH. ASPIRATION, FALL AND SAFETY PRECAUTIONS MAINTAINED. WILL ENDORSE PLAN OF CARE TO ONCOMING SHIFT.
[2021-06-06] MEDS: BLOOD SUGAR DIAGNOSTIC 1 EACH STRIP VI SCH ×4 (06:29→22:09)
[2021-06-06 06:56] LABS: ALANINE AMINOTRANSFERASE 47 U/L (12-78); ALBUMIN 2.1 g/dL (3.4-5.0); ALKALINE PHOSPHATASE 503 U/L (46-116); ASPARTATE AMINOTRANSFERASE 68 U/L (15-37); BILIRUBIN,TOTAL 0.7 mg/dL (0.2-1.0); CALCIUM, SERUM 8.1 mg/dL (8.5-10.1); CARBON DIOXIDE 24 mmol/L (21-32); CHLORIDE 103 mmol/L (98-107); GLUCOSE 121 mg/dL (74-106); MAGNESIUM 2.2 mg/dL (1.8-2.4); PHOSPHORUS 4.1 mg/dL (2.5-4.9); POTASSIUM 4.3 mmol/L (3.5-5.1); SODIUM SERUM 138 mmol/L (136-145)
[2021-06-06 07:03] LABS: UREA NITROGEN, BLOOD 82 mg/dL (7-18)
--- NOTE | 2021-06-06 07:30 | NUR ---
MS RN OPENING NOTE RECEIVED PATIENT AWAKE ON BED AND A/O X 4. ON ROOM AIR TOLERATING WELL. NO SOB NOTED. NOT IN DISTRESS. ABLE TO MAKE NEEDS KNOWN. WITH NO COMPLAINTS OF PAIN AT THIS TIME. WITH IV ACCESS AT RIGHT WRIST #22G WITH IVF NA BICARB @ 100ML/HR INFUSING WELL. AMBULATORY WITH STEADY GAIT. CALL LIGHT WITHIN REACH. SAFETY MEASURES IN PLACE. CALL LIGHT WITHIN REACH. BED ON LOWEST AND LOCKED POSITION, SIDE RAILS UP X2. WILL CONTINUE TO MONITOR.
[2021-06-06 08:00] VITALS: BP 141/60
[2021-06-06] MEDS: Sodium Bicarbonate 100 MEQ in IV D5W 1,000 ML IV SCH (08:10)
[2021-06-06] MEDS: FERROUS SULFATE (325 MG) 325 MG/TAB TABLET PO SCH (08:12)
[2021-06-06] MEDS: CHOLECALCIFEROL 1,000 UNIT TABLET (VIT D3) PO SCH (08:12)
[2021-06-06] MEDS: THIAMINE HCL 100 MG TABLET PO SCH (08:12)
[2021-06-06] MEDS: METOPROLOL SUCCINATE 50 MG TAB.SR.24H PO SCH (08:16)
[2021-06-06] MEDS: ASCORBIC ACID 500 MG TABLET PO SCH (08:17)
[2021-06-06] MEDS: PANTOPRAZOLE 40 MG TABLET.DR PO SCH (08:17)
[2021-06-06] MEDS: LEVOTHYROXINE SODIUM 125 MCG TABLET PO SCH (08:17)
[2021-06-06] MEDS: SOD FERRIC GLUC 125 MG in IV NS 0.9% 100 ML IV SCH (14:38)
[2021-06-06 15:57] VITALS: BP 129/67
[2021-06-06] MEDS: ATORVASTATIN 40 MG TABLET PO SCH (17:56)
[2021-06-06] MEDS: IV NS 0.9% 1,000 ML IV SCH (17:59)
--- NOTE | 2021-06-06 18:50 | NUR ---
MS RN CLOSING NOTE PATIENT RESTING ON BED AND A/O X 4. ON ROOM AIR TOLERATING WELL. NO SOB NOTED. NOT IN DISTRESS. ABLE TO MAKE NEEDS KNOWN. WITH NO COMPLAINTS OF PAIN AT THIS TIME. WITH IV ACCESS AT RIGHT WRIST #22G WITH IVF NS AT 125MLML/HR INFUSING WELL. AMBULATORY WITH STEADY GAIT. CALL LIGHT WITHIN REACH. SAFETY MEASURES IN PLACE. CALL LIGHT WITHIN REACH. BED ON LOWEST AND LOCKED POSITION, SIDE RAILS UP X2. WILL ENDORSE TO NEXT SHIFT FOR MICHELLE.
--- NOTE | 2021-06-06 19:10 | NUR ---
RN NOTES: UPON ENDORSEMENT, AWAKE, WATCHING TV. WITH IVF OF NS AT 125 ML/HR, CANNULA ON THE RW G#22 PATENT,ABLE TO AMBULATE, STEADY GATE, STANDBY ASSIST, PENDING FOR PT EVALUATION FOR CLIMBING UP THE STAIRS, FOR POSSIBLE DISCHARGE, NO TENTATIVE DATE YET.AWAITING FOR LIVER BIOPSY RESULT. -A/OX4, NO SIGN OF RESPIRATORY DISCOMFORT, NOT ON PAIN, ORIENTED TO UNIT AND STAFF, FALL,SAFETY AND ASPIRATION PRECAUTION OBSERVED.
[2021-06-06 20:00] VITALS: BP 123/56
--- NOTE | 2021-06-06 20:31 | NUR ---
RN NOTES: COMPLAINED OF MILD BODY PAIN GIVEN PRN PAIN MEDICATION PER PATIENT REQUEST.
--- NOTE | 2021-06-06 21:06 | NUR ---
RN NOTES: -AWAKE AND ASSISTED TO THE BATHROOM, VERY COOPERATIVE PATIENT, NO DIZZINESS OR POSTURAL HYPOTENSION NOTED, ACTIVITY TOLERATED AMBULATING TO THE BR WITH STANDBY ASSIST.NEEDS ATTENDED.
--- NOTE | 2021-06-06 22:08 | NUR ---
RN NOTES: BLOOD SUGAR NGTIF=[id number], NO INSULIN PER SCALE, WILL CONTINUE TO MONITOR FOR SIGN OF HYPER AND HYPOGLYCEMIA.
[2021-06-06] MEDS: *INSULIN REGULAR(HUMULIN R)HUM 100 UNIT/ML VIAL SQ PRN (22:09)
--- NOTE | 2021-06-06 22:35 | NUR ---
RN NOTES: (ONCO) CAME IN TO VISIT THE PATIENT, HE WAS ALREADY ASLEEP, PER DR. BEACH, NOTIFY PRIMARY DOCTOR IN THE MORNING TO CALL GI DOCTOR FOR CONSULT.
--- NOTE | 2021-06-06 23:08 | NUR ---
RN NOTES: ASSISTED AGAIN TO THE BATHROOM, ABLE TO AMBULATE WITH STANDBY ASSIST, NO SOB NOTED, ACTIVITY TOLERATED, ON CLOSE WATCH.KEPT CALL LIGHT WITHIN EASY REACH.
[2021-06-07] MEDS: IV NS 0.9% 1,000 ML IV SCH ×3 (01:42→17:00)
--- NOTE | 2021-06-07 01:48 | NUR ---
RN NOTES: -IVF CONSUMED, NEW BAG OF NS SCANNED , UNABLE TO SCAN, MANUALLY ENTERED THE BARCODE, 2 RN CHECK AND VERIFY THE ORDER, WITNESSED BY ANOTHER RN-JENNIFER. -IVF NS AT 125 ML/HR STARTED AT 0142.
[2021-06-07] MEDS: ACETAMINOPHEN 325 MG TABLET PO PRN (02:35)
--- NOTE | 2021-06-07 02:36 | NUR ---
RN NOTES: AWAKE, ASSISTED TO THE BATHROOM, WHEN HE COME BACK HE VERBALIZED HE HAS GENERALIZED MILD PAIN, ASKING FOR TYLENOL PRN, GIVEN PER PATIENT REQUEST, NON PHARMACOLOGIC INTERVENTION RENDERED.
[2021-06-07 06:16] LABS: BASOPHILS # (AUTO) 0.1 K/uL (0.0-0.2); EOSINOPHILS % (AUTO) 2.9 % (0.0-6.0); HEMATOCRIT 26 % (39-51); HEMOGLOBIN 8.6 g/dL (13.5-17.5); LYMPHOCYTES # (AUTO) 1.1 K/uL (0.8-4.8); LYMPHOCYTES % (AUTO) 14.1 % (20.0-44.0); MEAN CORPUSCULAR HGB CONC 33 g/dl (31.0-36.0); MEAN CORPUSCULAR VOLUME 97 fL (80-96); MONOCYTES # (AUTO) 0.7 K/uL (0.1-1.30); MONOCYTES % (AUTO) 9.4 % (2.0-12.0); NEUTROPHILS # (AUTO) 5.5 K/uL (1.8-8.9); NEUTROPHILS % (AUTO) 72.6 % (43.0-81.0); PLATELET COUNT (AUTO) 145 K/uL (150-450); RED BLOOD CELL COUNT(AUTO) 2.68 MIL/uL (4.5-6.0); WHITE BLOOD COUNT (AUTO) 7.5 K/uL (4.3-11.0)
--- NOTE | 2021-06-07 06:38 | NUR ---
RN NOTES; VERY PLEASANT PERSONALITY, AWAKE, ASSISTED TO BATHROOM, PEE 5X IN OUR SHIFT, LATEST WEIGHT-224, BLOOD TEST DONE IN THE MORNING, AT 0630 LATEST BLOOD SUGAR-103, NO INSULIN PER SCALE, NO PAIN OR DISCOMFORT, TO NOTIFY PRIMARY DOCTOR FOR GI CONSULT AND POSSIBLE ENDOSCOPY. TO F/U LIVER BIOPSY RESULT.F/U PT EVAL TODAY. ENDORSED FOR CONTINUITY OF CARE.
--- NOTE | 2021-06-07 07:30 | NUR ---
MS RN OPENING NOTES RECEIVED PATIENT AWAKE, SITTING ON BED AND A/O X4. ON ROOM AIR TOLERATING WELL. NO SOB NOTED. NOT IN DISTRESS. WITH NO COMPLAINTS OF PAIN AT THIS TIME. WITH IV ACCESS AT RIGHT WRIST G22 WITH NS AT 125ML/HR INFUSING WELL. SAFETY MEASURES IN PLACE. CALL LIGHT WITHIN REACH. BED ON LOWEST AND LOCKED POSITION, SIDE RAILS UP X2. WILL CONTINUE TO MONITOR.
[2021-06-07 08:00] VITALS: BP 139/75
[2021-06-07 08:07] LABS: CARBON DIOXIDE 23 mmol/L (21-32); CHLORIDE 105 mmol/L (98-107); CREATININE 3.7 mg/dL (0.6-1.3); GLUCOSE 98 mg/dL (74-106); POTASSIUM 4.2 mmol/L (3.5-5.1); SODIUM SERUM 139 mmol/L (136-145); UREA NITROGEN, BLOOD 74 mg/dL (7-18)
[2021-06-07] MEDS: THIAMINE HCL 100 MG TABLET PO SCH (08:19)
[2021-06-07] MEDS: CHOLECALCIFEROL 1,000 UNIT TABLET (VIT D3) PO SCH (08:19)
[2021-06-07] MEDS: FERROUS SULFATE (325 MG) 325 MG/TAB TABLET PO SCH (08:19)
[2021-06-07] MEDS: LEVOTHYROXINE SODIUM 125 MCG TABLET PO SCH (08:20)
[2021-06-07] MEDS: PANTOPRAZOLE 40 MG TABLET.DR PO SCH (08:20)
[2021-06-07] MEDS: METOPROLOL SUCCINATE 50 MG TAB.SR.24H PO SCH (08:20)
[2021-06-07] MEDS: ASCORBIC ACID 500 MG TABLET PO SCH (08:20)
[2021-06-07] MEDS: BLOOD SUGAR DIAGNOSTIC 1 EACH STRIP VI SCH ×4 (08:21→21:18)
[2021-06-07 16:00] VITALS: BP 140/62
[2021-06-07] MEDS: SOD FERRIC GLUC 125 MG in IV NS 0.9% 100 ML IV SCH (17:08)
[2021-06-07] MEDS: ATORVASTATIN 40 MG TABLET PO SCH (18:08)
--- NOTE | 2021-06-07 18:32 | NUR ---
MS RN CLOSING NOTES PATIENT AWAKE ON BED AND A/O X4. ON ROOM AIR TOLERATING WELL. NO SOB NOTED. NOT IN DISTRESS. WITH NO COMPLAINTS OF PAIN AT THIS TIME. WITH IV ACCESS AT LEFT UPPER ARM MIDLINE G18 WITH NS AT 125ML/HR INFUSING WELL. SAFETY MEASURES IN PLACE. CALL LIGHT WITHIN REACH. BED ON LOWEST AND LOCKED POSITION, SIDE RAILS UP X2. WILL ENDORSE TO NEXT SHIFT FOR MICHELLE.
--- NOTE | 2021-06-07 19:36 | NUR ---
MS RN OPENING NOTES RECEIVED PT IN BED, AWAKE. AOx4. ABLE TO MAKE NEEDS KNOWN. ON RA AND TOLERATING WELL. NO SOB NOTED. NO S/SX OF RESPIRATORY DISTRESS NOTED. IV ACCESS IN ALLAN MIDLINE #18G RUNNING NS @125 ML/HR. SAFETY PRECAUTIONS IN PLACE: BED IN LOWEST, LOCKED POSITION, SIDERAILS UPx2, AND BRAKES ON. TABLE AND CALL LIGHT WITHIN REACH. WILL CONTINUE TO MONITOR
[2021-06-07 20:00] VITALS: BP 133/65
[2021-06-08] MEDS: BLOOD SUGAR DIAGNOSTIC 1 EACH STRIP VI SCH ×2 (06:10→11:43)
[2021-06-08 06:28] LABS: BASOPHILS # (AUTO) 0.1 K/uL (0.0-0.2); EOSINOPHILS % (AUTO) 2.4 % (0.0-6.0); HEMATOCRIT 26 % (39-51); HEMOGLOBIN 8.7 g/dL (13.5-17.5); LYMPHOCYTES # (AUTO) 1.3 K/uL (0.8-4.8); LYMPHOCYTES % (AUTO) 16.2 % (20.0-44.0); MEAN CORPUSCULAR HGB CONC 33 g/dl (31.0-36.0); MEAN CORPUSCULAR VOLUME 98 fL (80-96); MONOCYTES # (AUTO) 0.8 K/uL (0.1-1.30); MONOCYTES % (AUTO) 10.3 % (2.0-12.0); NEUTROPHILS # (AUTO) 5.6 K/uL (1.8-8.9); NEUTROPHILS % (AUTO) 70.1 % (43.0-81.0); PLATELET COUNT (AUTO) 143 K/uL (150-450); RED BLOOD CELL COUNT(AUTO) 2.69 MIL/uL (4.5-6.0)
[2021-06-08] MEDS: IV NS 0.9% 1,000 ML IV SCH ×2 (06:30→08:42)
[2021-06-08 06:45] LABS: ALANINE AMINOTRANSFERASE 51 U/L (12-78); ALKALINE PHOSPHATASE 572 U/L (46-116); ASPARTATE AMINOTRANSFERASE 61 U/L (15-37); BILIRUBIN,TOTAL 0.9 mg/dL (0.2-1.0); CALCIUM, SERUM 7.8 mg/dL (8.5-10.1); CARBON DIOXIDE 23 mmol/L (21-32); CHLORIDE 107 mmol/L (98-107); CREATININE 3.2 mg/dL (0.6-1.3); GLUCOSE 90 mg/dL (74-106); MAGNESIUM 1.6 mg/dL (1.8-2.4); PHOSPHORUS 3.7 mg/dL (2.5-4.9); POTASSIUM 4.1 mmol/L (3.5-5.1); SODIUM SERUM 140 mmol/L (136-145); TOTAL PROTEIN, SERUM 5.8 g/dL (6.4-8.2); UREA NITROGEN, BLOOD 65 mg/dL (7-18)
--- NOTE | 2021-06-08 06:57 | NUR ---
MS RN CLOSING NOTES PT IN BED, AWAKE, WATCHING TV. AOx4. ABLE TO MAKE NEEDS KNOWN. ON RA AND TOLERATING WELL. NO SOB NOTED. NO S/SX OF RESPIRATORY DISTRESS NOTED. IV ACCESS IN ALLAN MIDLINE #18G RUNNING NS @125 ML/HR. ALL NEEDS MET. PT KEPT CLEAN AND DRY. NO COMPLAINTS OF PAIN THROUGHOUT SHIFT. SAFETY PRECAUTIONS IN PLACE: BED IN LOWEST, LOCKED POSITION, SIDERAILS UPx2, AND BRAKES ON. TABLE AND CALL LIGHT WITHIN REACH. WILL ENDORSE TO ONCOMING SHIFT.
--- NOTE | 2021-06-08 07:48 | NUR ---
MS RN OPENING NOTES RECEIVED PATIENT IN BED, AWAKE, A/O X4. PATIENT ON ROOM AIR; BREATHING EVEN AND UNLABORED AT THIS TIME; NO SOB PRESENT. NO COMPLAINS OF PAIN. ALLAN MIDLINE IN PLACE RUNNING NS @ 125 MLS/HR. SAFETY PRECAUTIONS IN PLACE; BED IN LOW POSITION AND LOCKED, RAILS UP X2, CALL LIGHT WITHIN REACH. WILL CONTINUE TO MONITOR PATIENT.
[2021-06-08] MEDS: LEVOTHYROXINE SODIUM 125 MCG TABLET PO SCH (08:40)
[2021-06-08] MEDS: THIAMINE HCL 100 MG TABLET PO SCH (08:40)
[2021-06-08] MEDS: PANTOPRAZOLE 40 MG TABLET.DR PO SCH (08:40)
[2021-06-08] MEDS: CHOLECALCIFEROL 1,000 UNIT TABLET (VIT D3) PO SCH (08:40)
[2021-06-08] MEDS: FERROUS SULFATE (325 MG) 325 MG/TAB TABLET PO SCH (08:40)
[2021-06-08] MEDS: ASCORBIC ACID 500 MG TABLET PO SCH (08:40)
[2021-06-08 08:48] VITALS: BP 130/56
[2021-06-08] MEDS: METOPROLOL SUCCINATE 50 MG TAB.SR.24H PO SCH (08:48)
[2021-06-08] MEDS ORDERED: DEXT50DI8 IV (08:56)
[2021-06-08] MEDS ORDERED: *INS REG SQ (08:56)
[2021-06-08] MEDS ORDERED: INSU100V28 SQ (08:56)
[2021-06-08] MEDS ORDERED: NORM10004 IV (08:56)
[2021-06-08] MEDS ORDERED: Blood Sugar Diagnostic VI (08:56)
[2021-06-08] MEDS ORDERED: INFLUENZA VACCINE 2021-22 0.5 ML DISP.SYRIN IM ONE (12:00)
[2021-06-08] MEDS: SOD FERRIC GLUC 125 MG in IV NS 0.9% 100 ML IV SCH (14:46)
--- NOTE | 2021-06-08 15:09 | NUR ---
MS LINING PARTS SEWER NOTES PATIENT DISCHARGED TO SNF IN MEDICALLY STABLE CONDITION. PATIENT A/O X4 ABLE TO MAKE HIS NEEDS KNOWN. PATIENT SEEN BY PHYSICIAN AND UNDERSTOOD HIS DISCHARGE INSTRUCTIONS. ALL DISCHARGE PAPERWORK READY AND SIGNED BY PATIENT. BELONGINGS ACCOUNTED FOR AND FORM SIGNED WELL. SKIN INTACT. CALLED FACILITY FOR REPORT; REPORT GIVEN TO ЕКАТЕРИНА BAILEY. IV ACCESS REMAINS IN PLACE PER FACILITY REQUEST. WRISTBAND REMOVED. PATIENT LEFT THE FLOOR ACCOMPANIED BY 2 acquisition lead AT [id number].
== END 2021-06-08 15:10 | DRG 682 ==
LOC: ER 09:13 → TELE 17:08 → MED 06-04 09:35
PROVIDERS: ADMIT Nurse Practitioner Acute Care; ATTEND Hospitalist
PROC: 0DB68ZX Excision of Stomach, Via Natural or Artificial Opening Endoscopic, Diagnostic (ICD-10-PCS; principal; 2021-06-02)
PROC: 0FB03ZX Excision of Liver, Percutaneous Approach, Diagnostic (ICD-10-PCS; 2021-06-05)
PROC: 05HC33Z Insertion of Infusion Device into Left Basilic Vein, Percutaneous Approach (ICD-10-PCS; 2021-06-07)
DX: N17.0 Acute kidney failure with tubular necrosis (principal); E43 Unspecified severe protein-calorie malnutrition; I13.0 Hypertensive heart and chronic kidney disease with heart failure and stage 1 through stage 4 chronic kidney disease, or unspecified chronic kidney disease; I50.32 Chronic diastolic (congestive) heart failure; J98.11 Atelectasis; E87.1 Hypo-osmolality and hyponatremia; E86.0 Dehydration; K76.9 Liver disease, unspecified; E11.22 Type 2 diabetes mellitus with diabetic chronic kidney disease; N18.30 Chronic kidney disease, stage 3 unspecified; I48.0 Paroxysmal atrial fibrillation; K29.80 Duodenitis without bleeding; K29.70 Gastritis, unspecified, without bleeding; Z79.01 Long term (current) use of anticoagulants; Z79.899 Other long term (current) drug therapy; Z79.84 Long term (current) use of oral hypoglycemic drugs; E03.9 Hypothyroidism, unspecified; E86.1 Hypovolemia; E78.5 Hyperlipidemia, unspecified; E83.42 Hypomagnesemia; G47.33 Obstructive sleep apnea (adult) (pediatric); I25.10 Atherosclerotic heart disease of native coronary artery without angina pectoris; R59.0 Localized enlarged lymph nodes; E66.9 Obesity, unspecified; Z68.37 Body mass index [BMI] 37.0-37.9, adult; Z91.11 Patient's noncompliance with dietary regimen; Z91.19 Patient's noncompliance with other medical treatment and regimen; D53.9 Nutritional anemia, unspecified; K80.20 Calculus of gallbladder without cholecystitis without obstruction; N20.0 Calculus of kidney; I70.0 Atherosclerosis of aorta; K57.30 Diverticulosis of large intestine without perforation or abscess without bleeding; Y90.9 Presence of alcohol in blood, level not specified; R74.01 Elevation of levels of liver transaminase levels; E87.5 Hyperkalemia; F10.21 Alcohol dependence, in remission; Z20.822 Contact with and (suspected) exposure to COVID-19
CPT/HCPCS: 36410; 36415; 71045-TC; 71250-TC; 76700-TC; 76942-TC; 80048-TC; 80053-TC; 80061-TC; 80076-TC; 82105; 82378; 82550-TC; 82728-TC; 82962-TC; 83540-TC; 83690-TC; 83735-TC; 83880; 83970; 84100-TC; 84153-TC; 84154-TC; 84155; 84165; 84443-TC; 84484-TC; 85025-TC; 85610-TC; 85730-TC; 86301; 86850-TC; 87081-TC; 88305-TC; 88313-TC; 88333-TC; 88341; 88342; 93307-TC; 97112-TC; 97116-TC; 97530-TC; C9803; G0378; J0610; J1815; J2405; J2704; J2916; J3475; J3490; J7030; J7060; J7070; Q2036

== ENCOUNTER 2021-06-23 16:33 | Inpatient (IN) | payer MEDICARE, BC ==
[~2021-06-23] VITALS: Ht 170.2 cm; Wt 115.7 kg
[~2021-06-23 16:33] MED LIST changes: +*INS REG SQ; -AMLO-213 PO; +APIX5TAB PO; +ASCO-352 PO; -ASPI-1169 PO; +ATOR40TA PO; +BUME2TAB7 PO; +Blood Sugar Diagnostic VI; +CHOL100062 PO; +DEXT50DI8 IV; +FERR325T23 PO; +INSU100V28 SQ; -IRBE150T28 PO; +LEVO125T8 PO; +MAGN400T26 PO; -METF-440 PO; +METO-358 PO; -METO1TAB10 PO; +NORM10004 IV; -OMEP20CA15 PO; +PANT40TA49 PO; +SENN-261 PO; -SIMV-49 PO; +THIA100T74 PO
--- NOTE | 2021-06-23 17:06 | NUR ---
BEATRIZ VARGAS [facility] FOR SOB, CONSTIPATION X2 DAYS, ABDOMINAL PAIN/DISTENSION, AND WEAKNESS TODAY. PT A/OX4. TOLERATING R/A WELL TOLERATING AT 97%. CONNECTED PT TO TELE MONITOR AND POX. SAFETY MEASURES IN PLACE.
[2021-06-23] MEDS ORDERED: ONDA4TAB5 PO (17:13)
[2021-06-23] MEDS ORDERED: MIRT-90 PO (17:13)
[2021-06-23] MEDS ORDERED: ACET-868 PO (17:13)
[2021-06-23] MEDS ORDERED: INSU100V3 SQ (17:13)
[2021-06-23] MEDS ORDERED: TYL2T PO (17:13)
--- NOTE | 2021-06-23 17:31 | NUR ---
TRIMMER OPERATOR AT PT'S BEDSIDE
[2021-06-23 17:45] LABS: BASOPHILS % (AUTO) 0.2 % (0.0-2.0); EOSINOPHILS % (AUTO) 0.4 % (0.0-6.0); HEMATOCRIT 37 % (39-51); HEMOGLOBIN 11.7 g/dL (13.5-17.5); LYMPHOCYTES # (AUTO) 1.6 K/uL (0.8-4.8); LYMPHOCYTES % (AUTO) 11.1 % (20.0-44.0); MEAN CORPUSCULAR HGB CONC 32 g/dl (31.0-36.0); MEAN CORPUSCULAR VOLUME 97 fL (80-96); MONOCYTES # (AUTO) 0.7 K/uL (0.1-1.30); MONOCYTES % (AUTO) 5.2 % (2.0-12.0); NEUTROPHILS # (AUTO) 11.8 K/uL (1.8-8.9); NEUTROPHILS % (AUTO) 83.1 % (43.0-81.0); PLATELET COUNT (AUTO) 186 K/uL (150-450); RED BLOOD CELL COUNT(AUTO) 3.77 MIL/uL (4.5-6.0); WHITE BLOOD COUNT (AUTO) 14.2 K/uL (4.3-11.0)
[2021-06-23 17:53] LABS: CALCIUM, SERUM 7.9 mg/dL (8.5-10.1); CARBON DIOXIDE 18 mmol/L (21-32); CHLORIDE 97 mmol/L (98-107); CREATININE 4.5 mg/dL (0.6-1.3); GLUCOSE 134 mg/dL (74-106); POTASSIUM 3.6 mmol/L (3.5-5.1); SODIUM SERUM 131 mmol/L (136-145); UREA NITROGEN, BLOOD 50 mg/dL (7-18)
[2021-06-23 17:58] LABS: ALANINE AMINOTRANSFERASE 59 U/L (12-78); ALBUMIN 1.9 g/dL (3.4-5.0); ASPARTATE AMINOTRANSFERASE 98 U/L (15-37); BILIRUBIN,DIRECT 1.7 mg/dL (0.0-0.2); BILIRUBIN,TOTAL 2.1 mg/dL (0.2-1.0); LIPASE 70 U/L (73-393); TOTAL PROTEIN, SERUM 6.4 g/dL (6.4-8.2)
--- NOTE | 2021-06-23 17:59 | NUR ---
C[employer]IN [employer] POWER OF MAINTENANCE SHOP WELDER [phone]
[2021-06-23 18:00] LABS: ALKALINE PHOSPHATASE 1013 U/L (46-116)
--- NOTE | 2021-06-23 18:05 | NUR ---
URINE COLLECTED AND SENT TO LAB
[2021-06-23 18:15] LABS: BILIRUBIN,URINE Negative (NEGATIVE); COLOR,URINE YELLOW (YELLOW); LEUKOCYTE ESTERASE ,URINE Negative (NEGATIVE); NITRITE, URINE Negative (NEGATIVE); PROTEIN,URINE Negative (NEGATIVE); UGLUCOSE Negative (NEGATIVE); UROBILINOGEN,URINE 0.2 EU/dL (0.2)
--- NOTE | 2021-06-23 19:00 | NUR ---
PT TAKEN TO CT VIA [facility]LEX
--- NOTE | 2021-06-23 20:17 | NUR ---
Cara LEMON #22G S/L; PATENT AND INTACT
--- NOTE | 2021-06-23 20:28 | NUR ---
COVID AND MRSA SWAB COLLECTED AND SENT TO LAB
[2021-06-23] MEDS ORDERED: FUROSEMIDE 40 MG/4 ML VIAL IV ONE (20:30)
--- NOTE | 2021-06-23 20:41 | NUR ---
tele bed: [phone]
[2021-06-23] MEDS ORDERED: FUROSEMIDE 40 MG/4 ML VIAL ONE (20:47)
--- NOTE | 2021-06-23 20:50 | NUR ---
EKG DONE. JASPAL PONCE AT PT'S BEDSIDE AND BROUGHT PT'S POLST: FULL CODE.
--- NOTE | 2021-06-23 20:56 | NUR ---
CALLED [facility] TO GIVE REPORT; AWAITING CALL BACK FROM SHAY WILLAMS
--- NOTE | 2021-06-23 21:07 | NUR ---
REPORT GIVEN TO SUSIE ALEMAN RN FOR PT'S MICHELLE
--- NOTE | 2021-06-23 21:24 | NUR ---
PT TRANSFERRED TO [facility] 119-1 VIA HOSPITAL PROTOCOL. ALL BELONGINGS WITH PT.
[2021-06-23] MEDS ORDERED: Z GUARD REMEDY 2 OZ OINT TP PRN (21:30)
[2021-06-23] MEDS ORDERED: MAG HYDROX/AL HYDROX/SIMETH 30 ML UDC PO PRN (21:30)
[2021-06-23] MEDS ORDERED: MAGNESIUM HYDROXIDE 30 ML UDC PO PRN (21:30)
[2021-06-23] MEDS ORDERED: DEXTROSE 50%-WATER 50 ML DISP.SYRIN IV PRN (23:30)
--- NOTE | 2021-06-23 23:35 | NUR ---
SUPERVISOR LANDSCAPE NOTE: RECEIVED PATIENT FROM ER BY Zeke JOHNSON, ON ROOM AIR, SATURATING 98%, A/O X4, JASPAL GREGORY (COUSIN/DOA) AT BEDSIDE, PATIENT ABLE MAKE NEEDS KNOWN, NO SOB, NO DISTRESS, DENIES ANY PAIN, DENIES CHEST PAIN, TELE MONITOR PLACED AND ON, NOTED WTH UNCONTROLLED A. FIB, RANGING FROM 110-130'S, RT HAND #22 GAUGE, PATENT AND INTACT, SKIN ASSESSMENT DONE, PICTURES TAKEN OF WOUNDS, NOTED WITH BILATERAL GROIN REDNESS, RIGHT BREASTFOLD WOUND, BILATERAL LOWER LEG REDNESS/EDEMA, BILATERAL HEEL REDNESS AND DRYNESS WITH EDEMA, POSTERIOR BUTTOCKS/SACRUM REDNESS. Addendum: 06/23/21 at 2340 by SUSIE SALEH RN ORIENTED PATIENT TO THE ROOM AND USE OF CALL LIGHT, SAFETY MEASURES MAINTAINED, WILL CONTINUE TO MONITOR.
[2021-06-24] VITALS: BP 106/60
[2021-06-24 04:00] VITALS: BP 122/70
[2021-06-24] MEDS: ONDANSETRON HCL/PF 4 MG/2 ML VIAL IVP PRN ×2 (06:33→13:06)
--- NOTE | 2021-06-24 06:48 | NUR ---
RN CLOSING NOTES: 0631 PATIENT NOTED WITH SVT HR 150, PT COMPLAINED OF NAUSEA, ZOFRAN ADMINISTERED, DENIES ANY CHEST PAIN, DIZZINESS, 0632 PT HR INBETWEEN A. FIB UNCONTROLLED AND SINUS TACH WITH IRREGULAR RATE WITH BBB HR BETWEEN 120-130'S, PT ASYMPTOMATIC. CHARGE NURSE MADE AWARE. PATIENT NPO SINCE MIDNIGHT 06/24 0000 PATIENT SHOWS NO SIGNS OF RESPIRATORY DISTRESS OR SOB, PATIENT AWAKE AND ALERT 0630, ABLE TO VERBALIZE NEEDS, CONSENT FOR ULTRASOUND GUIDED PARACENTESIS OBTAINED AND PLACED IN THE CHART, BED AT LOWEST POSITION, CALL LIGHT WITHIN REACH, SIDE RAILS UP X2, WOUND CONSULT ORDERED, NEPHRO AND CARDIO CONSULT ORDERED, MILD SPLENOMEGALY, HEMATOLOGY/ONCOLOGY CONSULT ORDERED. WILL ENDORSE TO DAY SHIFT NURSE.
[2021-06-24] MEDS ORDERED: PANTOPRAZOLE 40 MG TABLET.DR PO SCH (07:30)
--- NOTE | 2021-06-24 07:30 | NUR ---
RN OPENING NOTES RECEIVED PATIENT IN BED, AXO 4, ABLE TO MAKE NEEDS KNOWN. V/S STABLE, ON ROOM AIR, SATURATING 98. NO SOB, NO DISTRESS, BREATHNG EVEN AND UNLABORED. DENIES ANY PAIN AND DISCOMFORT THIS TIME. TELE MONITOR PLACED AND ON, NOTED WITH UNCONTROLLED TACHYCARDIA, RANGING FROM 110-130'S, RT HAND #22 GAUGE, PATENT AND INTACT. SAFE MEASURE PROVIDED, SIDE RAILS UPX2, LOW POSITION IN BED. CALL LIGHT WITHIN REACH. CONTINUE TO MONITOR.
[2021-06-24 07:56] LABS: BASOPHILS % (AUTO) 0.2 % (0.0-2.0); EOSINOPHILS % (AUTO) 0.9 % (0.0-6.0); HEMATOCRIT 38 % (39-51); HEMOGLOBIN 12.4 g/dL (13.5-17.5); MEAN CORPUSCULAR HGB CONC 33 g/dl (31.0-36.0); MEAN CORPUSCULAR VOLUME 96 fL (80-96); MONOCYTES # (AUTO) 0.7 K/uL (0.1-1.30); MONOCYTES % (AUTO) 4.7 % (2.0-12.0); NEUTROPHILS # (AUTO) 11.7 K/uL (1.8-8.9); NEUTROPHILS % (AUTO) 80.2 % (43.0-81.0); PLATELET COUNT (AUTO) 205 K/uL (150-450); RED BLOOD CELL COUNT(AUTO) 3.96 MIL/uL (4.5-6.0); WHITE BLOOD COUNT (AUTO) 14.6 K/uL (4.3-11.0)
[2021-06-24 08:00] VITALS: BP 117/64
[2021-06-24 08:45] LABS: CHOLESTEROL 111 mg/dL (<200); HDL CHOLESTEROL 11 mg/dL (40-60); LDL 66 mg/dL (0-99); THYROID STIMULATING HORMONE 1.441 uIU/mL (0.358-3.74); TRIGLYCERIDES 164 mg/dL (30-150)
--- NOTE | 2021-06-24 08:54 | NUR ---
RN NOTES SPOKE W/ KERA FROM RADIOLOGY; WILL COORDINATE W/ TIME FOR PARACENTESIS TODAY AND OK FOR PATIENT TO DRINK WATER FOR NOW.
[2021-06-24 08:55] LABS: ALANINE AMINOTRANSFERASE 59 U/L (12-78); ASPARTATE AMINOTRANSFERASE 110 U/L (15-37); BILIRUBIN,TOTAL 2.6 mg/dL (0.2-1.0); CARBON DIOXIDE 18 mmol/L (21-32); CHLORIDE 97 mmol/L (98-107); GLUCOSE 113 mg/dL (74-106); MAGNESIUM 1.6 mg/dL (1.8-2.4); PHOSPHORUS 5.5 mg/dL (2.5-4.9); POTASSIUM 3.6 mmol/L (3.5-5.1); SODIUM SERUM 134 mmol/L (136-145); TOTAL PROTEIN, SERUM 6.8 g/dL (6.4-8.2); UREA NITROGEN, BLOOD 53 mg/dL (7-18)
[2021-06-24] MEDS: BLOOD SUGAR DIAGNOSTIC 1 EACH STRIP IN SCH ×4 (09:03→21:32)
[2021-06-24 09:16] LABS: ALKALINE PHOSPHATASE 1480 U/L (46-116)
[2021-06-24] MEDS ORDERED: SENNOSIDES 8.6 MG TABLET PO PRN (09:30)
[2021-06-24] MEDS ORDERED: ACETAMINOPHEN 325 MG TABLET PO PRN (09:30)
[2021-06-24] MEDS ORDERED: BUMETANIDE (1 MG) 1 MG TABLET PO SCH (09:32)
[2021-06-24] MEDS ORDERED: ONDANSETRON 4 MG TAB.RAPDIS PO PRN (10:00)
[2021-06-24] MEDS: LEVOTHYROXINE SODIUM 125 MCG TABLET PO SCH (10:04)
[2021-06-24] MEDS: INSULIN REGULAR, HUMAN 100 UNIT/ML 3 ML VIAL SQ PRN ×3 (11:41→21:33)
[2021-06-24 12:00] VITALS: BP 124/82
[2021-06-24] MEDS: ACETAMINOPHEN 325 MG TABLET PO PRN (12:47)
[2021-06-24] MEDS: PIPERACILLIN /TAZOBACTAM 2.25 G in IV D5W 50 ML IV SCH (14:38)
[2021-06-24] MEDS: IV NS 0.9% 1,000 ML IV SCH (14:40)
[2021-06-24 16:00] VITALS: BP 115/59
--- NOTE | 2021-06-24 16:38 | NUR ---
Per CEO & FOUNDER order patient is okay to proceed with a cardiac diet, discontinued NPO status
[2021-06-24] MEDS: MAGNESIUM OXIDE 400 MG TABLET PO SCH (16:40)
[2021-06-24] MEDS ORDERED: PIPERACILLIN /TAZOBACTAM 3.375 G in IV D5W 50 ML IV SCH (18:00)
[2021-06-24] MEDS: VANCOMYCIN 500 MG in IV D5W 100 ML IV SCH (18:36)
--- NOTE | 2021-06-24 18:43 | NUR ---
RN CLOSING NOTES; PT IN BED RESTING. PT A/OX4, PT CAN MAKE NEEDS KNOWN. ALL MEDICATION GIVEN AND WELL TOLERATED PATIENT IS NO LONGER NPO HER HAS BEEN STARTED IN A CARDIAC DIET. PT KEPT CLEAN, DRY AND COMFORTABLE. NO SOB, NO DISTRESS NOTED. PT HAS NO C/O PAIN AT THIS TIME. ALL SAFETY MEASURES RENDERED, BED LOCKED IN LOWEST POS 2 SIDE RAILS UP, BED ALARM ACTIVATED. WITH CALL LIGHT WITHIN REACH. ENDORSED TO DRAWER IN STITCH BONDING MACHINE RN.
--- NOTE | 2021-06-24 19:35 | NUR ---
RN NOTE PT RECEIVED IN BED. PT IS ON ROOM AIR SHOWING NO S/S OF RESP DISTRESS/SOB. BREATHING EVEN AND UNLABORED. PT IS ALERT AND ORIENTED X4. ON TELE MONITOR SHOWING CONTROLLED A-FIB. EDEMA NOTED ON BILATERAL LOWER EXTREMITIES. CURRENTLY ON CARDIAC DIET. IV ACCESS NOTED ON RIGHT HAND #22. 0.9% NS RUNNING AT 75 ML/HR. LINE FLUSHED, PATENT, AND INTACT WITH NO SIGNS OF INFILTRATION. ALL SAFETY MEASURES IMPLEMENTED. CALL LIGHT WITHIN REACH. BED ALARM ON. BED LOCKED AND IN LOWEST POSITION. WILL CONTINUE TO MONITOR AND ASSESS FOR ANY CHANGES DURING SHIFT.
[2021-06-24 20:00] VITALS: BP 116/62
[2021-06-24] MEDS ORDERED: METOCLOPRAMIDE HCL 10 MG/2 ML VIAL IV PRN (21:30)
[2021-06-24] MEDS: METOPROLOL TARTRATE 50 MG TABLET PO SCH (21:31)
[2021-06-24] MEDS: MIRTAZAPINE 15 MG TABLET PO SCH (21:31)
[2021-06-24] MEDS: ATORVASTATIN 40 MG TABLET PO SCH (21:31)
[2021-06-24 21:52] LABS: C-REACTIVE PROTEIN 15.3 mg/dL (0.0-0.9)
[2021-06-25] VITALS: BP 97/60
[2021-06-25] MEDS: ZOLPIDEM TARTRATE 5 MG TABLET PO PRN ×2 (00:10→21:09)
[2021-06-25] MEDS: PIPERACILLIN /TAZOBACTAM 2.25 G in IV D5W 50 ML IV SCH ×2 (02:21→13:16)
[2021-06-25 04:00] VITALS: BP 91/51
[2021-06-25] MEDS: IV NS 0.9% 1,000 ML IV SCH ×2 (04:48→18:29)
--- NOTE | 2021-06-25 04:48 | NUR ---
RN NOTE UNABLE TO SCAN 0.9% NS AT SCHEDULED TIME DUE TO UNEXPECTED MEDITECH DOWN TIME. FLUIDS STILL RUNNING FROM PREVIOUS BAG.
--- NOTE | 2021-06-25 07:11 | NUR ---
RN NOTE NO CHANGES IN PT CONDITION DURING SHIFT. PT STATED HE GETS POSITIONAL SOB AND IS NOW ON 2L OF O2 VIA NC SHOWING NO S/S OF RESP DISTRESS. BREATHING EVEN AND UNLABORED. PT IS ALERT AND ORIENTED X4. ON TELE MONITOR SHOWING CONTROLLED A-FIB. EDEMA NOTED ON BILATERAL LOWER EXTREMITIES. CURRENTLY ON CARDIAC DIET. IV ACCESS NOTED ON RIGHT HAND #22. 0.9% NS RUNNING AT 75 ML/HR. LINE FLUSHED, PATENT, AND INTACT WITH NO SIGNS OF INFILTRATION. ALL DUE MEDS GIVEN ORDERED. PT KEPT CLEAN AND COMFORTABLE. ALL SAFETY MEASURES IMPLEMENTED. CALL LIGHT WITHIN REACH. BED ALARM ON. BED LOCKED AND IN LOWEST POSITION. WILL ENDORSE TO MORNING SHIFT RN FOR MICHELLE.
--- NOTE | 2021-06-25 07:31 | NUR ---
BILL BOARD POSTER OPENING NOTES RECEIVED PT RESTING IN BED, EASILY WOKEN UP BY VERBAL COMMAND. PT IS IN SEMI-FOWLERS POSITION WITH NO S/SX OF RESPIRATORY DISTRESS OR COMPLAINTS OF PAIN AT THIS TIME. PT HAS A R HAND 22G IV RUNNING NS@75ML/HR, INFUSING WELL. SAFETY MEASURES IN PLACE WITH BED IN LOWEST LOCKED POSITION SIDE RAILS UP X3, CALL LIGHT WITHIN REACH AND BED ALARM ON.
[2021-06-25] MEDS: LEVOTHYROXINE SODIUM 125 MCG TABLET PO SCH (07:33)
[2021-06-25] MEDS: BLOOD SUGAR DIAGNOSTIC 1 EACH STRIP IN SCH ×4 (07:33→21:18)
[2021-06-25] MEDS: PANTOPRAZOLE 40 MG TABLET.DR PO SCH (07:33)
[2021-06-25 08:00] VITALS: BP 91/55
[2021-06-25 08:23] LABS: BASOPHILS # (AUTO) 0.1 K/uL (0.0-0.2); BASOPHILS % (AUTO) 0.5 % (0.0-2.0); EOSINOPHILS % (AUTO) 0.7 % (0.0-6.0); HEMATOCRIT 36 % (39-51); HEMOGLOBIN 11.5 g/dL (13.5-17.5); LYMPHOCYTES # (AUTO) 1.5 K/uL (0.8-4.8); LYMPHOCYTES % (AUTO) 11.6 % (20.0-44.0); MEAN CORPUSCULAR HGB CONC 32 g/dl (31.0-36.0); MEAN CORPUSCULAR VOLUME 100 fL (80-96); MONOCYTES # (AUTO) 0.7 K/uL (0.1-1.30); MONOCYTES % (AUTO) 5.6 % (2.0-12.0); NEUTROPHILS # (AUTO) 10.4 K/uL (1.8-8.9); NEUTROPHILS % (AUTO) 81.6 % (43.0-81.0); PLATELET COUNT (AUTO) 132 K/uL (150-450); RED BLOOD CELL COUNT(AUTO) 3.62 MIL/uL (4.5-6.0); WHITE BLOOD COUNT (AUTO) 12.8 K/uL (4.3-11.0)
[2021-06-25 08:38] LABS: CALCIUM, SERUM 7.7 mg/dL (8.5-10.1); CARBON DIOXIDE 18 mmol/L (21-32); CHLORIDE 99 mmol/L (98-107); CREATININE 5.7 mg/dL (0.6-1.3); GLUCOSE 101 mg/dL (74-106); MAGNESIUM 1.6 mg/dL (1.8-2.4); PHOSPHORUS 5.7 mg/dL (2.5-4.9); POTASSIUM 4.2 mmol/L (3.5-5.1); SODIUM SERUM 132 mmol/L (136-145); UREA NITROGEN, BLOOD 60 mg/dL (7-18)
[2021-06-25] MEDS ORDERED: METOPROLOL SUCCINATE 50 MG TAB.SR.24H PO SCH (09:00)
[2021-06-25] MEDS: METOPROLOL TARTRATE 50 MG TABLET PO SCH ×3 (09:00→17:00)
[2021-06-25] MEDS: ASCORBIC ACID 500 MG TABLET PO SCH (09:12)
[2021-06-25] MEDS: FERROUS SULFATE (325 MG) 325 MG/TAB TABLET PO SCH (09:12)
[2021-06-25] MEDS: MAGNESIUM OXIDE 400 MG TABLET PO SCH ×2 (09:12→17:35)
[2021-06-25] MEDS: CHOLECALCIFEROL 1,000 UNIT TABLET (VIT D3) PO SCH (09:12)
[2021-06-25] MEDS ORDERED: IV NS 0.9% 500 ML IV ONE (10:30)
[2021-06-25] MEDS ORDERED: ENOXAPARIN SODIUM 40 MG/0.4 ML DISP.SYRIN SQ SCH (10:30)
--- NOTE | 2021-06-25 10:30 | NUR ---
MACHINE CAPTAIN NOTES PT SEEN AND ASSESSED BY PHYSICAL THERAPIST. PER THERAPIST OKAY TO AMBULATE TO THE BATHROOM WITH ASSIST, USING A WALKER.
--- NOTE | 2021-06-25 11:19 | NUR ---
WOUND CARE CONSULT: REVIEWED CHART, NURSING DOCUMENTATION AND PHOTOS WHICH INDICATE RASHES/REDNESS TO ABDOMINAL/GROIN FOLDS AND BUTTOCKS WELL REDNESS TO LOWER LEGS, PRESENT ON ADMISSION. DPM CONSULT CALLED TO DR FORTUNE. RECOMMENDATIONS MADE FOR SKIN PROTECTION. DISCUSSED WITH NURSING STAFF. MD IN AGREEMENT WITH PLAN OF CARE.
[2021-06-25 12:00] VITALS: BP 109/66
--- NOTE | 2021-06-25 12:00 | NUR ---
HOME BASED ASSISTANT NOTES FAMILY MEMBER (JASPAL:COUSIN) CALLED FOR UPDATE. INFORMED OF PLAN OF CARE. WILL CALL BACK THIS EVENING TO SPEAK WITH THE PATIENT.
--- NOTE | 2021-06-25 15:01 | NUR ---
HOOP ROLLS OPERATOR NOTES PT RETURNED FROM CT OF THE CHEST W/O CONTRAST. VITAL SIGNS STABLE T: 97.6, HR:90, BP:100/67, RR: 20, AND O2 SATURATION OF 100% ON 2L NC.
[2021-06-25 16:00] VITALS: BP 100/67
[2021-06-25] MEDS: VANCOMYCIN 500 MG in IV D5W 100 ML IV SCH (17:33)
[2021-06-25] MEDS: CLOTRIMAZOLE 1% 15 GM TUBE TP SCH (17:35)
[2021-06-25] MEDS: APIXABAN 5 MG TABLET PO SCH (17:36)
[2021-06-25] MEDS: Magnesium 1GM/D5W 100ML PREMIX 100 ML IV SCH ×2 (18:29→19:57)
--- NOTE | 2021-06-25 18:45 | NUR ---
LEAD DESIGNER CLOSING NOTE PT RESTING IN BED WITH HOB ELEVATED. PT HAS A R HAND 22G RUNNING VANCOMYCIN @100ML/HR. PT IS AMBULATORY WITH WALKER ASSIST TO THE BATHROOM. UNABLE TO COLLECT URINE SAMPLE FOR CYTOLOGY DURING SHIFT. SAFETY MEASURES IN PLACE WITH BED IN LOWEST LOCKED POSITION, CALL LIGHT WITHIN REACH, AND SIDE RAILS UP X2.
[2021-06-25 20:00] VITALS: BP 127/67
[2021-06-25] MEDS: ATORVASTATIN 40 MG TABLET PO SCH (21:07)
[2021-06-25] MEDS: MIRTAZAPINE 15 MG TABLET PO SCH (21:07)
--- NOTE | 2021-06-25 21:10 | NUR ---
RN NOTE PATIENT REQUESTING FOR SLEEPING MEDICATION, KYRIE. STATES HE WANTS TO SLEEP. ASSISTED WITH REPOSITIONING, OFFERED EXTRA BLANKETS. LIGHTS DIMMED. WILL CONTINUE TO MONITOR. CALL LIGHT WITHIN REACH.
[2021-06-25] MEDS: INSULIN REGULAR, HUMAN 100 UNIT/ML 3 ML VIAL SQ PRN (21:21)
--- NOTE | 2021-06-26 00:46 | NUR ---
RN NOTE PATIENT WITH MINIMAL URINE OUTPUT. BLADDER SCANNER DONE AND REVEALED 563 ML OF URINE. CONTACTED AND INFORMED RESEARCH MICROBIOLOGIST PHYSICIAN, DR. BROWNLEE, WITH NEW ORDER, INSERT INDWELLING LANDERS. NOTED AND CARRIED OUT. STERILE TECHNIQUE OBSERVED. WILL CONTINUE TO MONITOR
--- NOTE | 2021-06-26 00:50 | NUR ---
RN NOTE URINE SAMPLE FOR CYTOLOGY COLLECTED VIA CATHETER VALVE PORT. SAMPLE HANDED DIRECTLY TO JEWELRY MAKER.
[2021-06-26] MEDS: PIPERACILLIN /TAZOBACTAM 2.25 G in IV D5W 50 ML IV SCH ×3 (01:08→20:08)
[2021-06-26] MEDS: IV NS 0.9% 1,000 ML IV SCH (02:39)
[2021-06-26 04:00] VITALS: BP 110/61
[2021-06-26] MEDS: LEVOTHYROXINE SODIUM 125 MCG TABLET PO SCH (07:52)
[2021-06-26] MEDS: PANTOPRAZOLE 40 MG TABLET.DR PO SCH (07:52)
[2021-06-26] MEDS: BLOOD SUGAR DIAGNOSTIC 1 EACH STRIP IN SCH ×4 (07:52→21:46)
[2021-06-26 08:00] VITALS: BP 92/49
--- NOTE | 2021-06-26 08:00 | NUR ---
RN NOTES PT BS 118. NO COVERAGE NEEDED AT THIS TIME PER SLIDING SCALE.
--- NOTE | 2021-06-26 08:00 | NUR ---
RN MORNING NOTE PT RECEIVED IN BED WITH HOB SEMI FOWLERS. PT IS ON 2L O2 VIA NC AT 95% TOLERATING WELL WITHOUT SIGNS OF DISTRESS OR LABORED BREATHING AT THIS TIME. PT IS A/OX4 AND HAS A LANDERS CATHETER IN PLACE DRAINING URINE BY GRAVITY. PT HAS R GOVEA IV ACCESS 22G INFUSING WITH NS @100ML/HR. BED IS LOCKED IN LOWEST POSITION X2 GUARD RAILS UP, CALL MAHMOOD IS WITHIN REACH, AND ALL HOSPITAL SAFETY MEASURES ARE IN PLACE. WILL CONTINUE TO MONITOR THIS SHIFT.
[2021-06-26 08:02] LABS: BASOPHILS # (AUTO) 0.1 K/uL (0.0-0.2); BASOPHILS % (AUTO) 0.3 % (0.0-2.0); EOSINOPHILS % (AUTO) 0.8 % (0.0-6.0); HEMATOCRIT 36 % (39-51); HEMOGLOBIN 11.6 g/dL (13.5-17.5); LYMPHOCYTES # (AUTO) 2.3 K/uL (0.8-4.8); LYMPHOCYTES % (AUTO) 13.2 % (20.0-44.0); MEAN CORPUSCULAR HGB CONC 32 g/dl (31.0-36.0); MEAN CORPUSCULAR VOLUME 96 fL (80-96); MONOCYTES # (AUTO) 0.8 K/uL (0.1-1.30); MONOCYTES % (AUTO) 4.3 % (2.0-12.0); NEUTROPHILS # (AUTO) 14.5 K/uL (1.8-8.9); NEUTROPHILS % (AUTO) 81.4 % (43.0-81.0); PLATELET COUNT (AUTO) 186 K/uL (150-450); RED BLOOD CELL COUNT(AUTO) 3.78 MIL/uL (4.5-6.0); WHITE BLOOD COUNT (AUTO) 17.8 K/uL (4.3-11.0)
[2021-06-26] MEDS: INSULIN REGULAR, HUMAN 100 UNIT/ML 3 ML VIAL SQ PRN ×3 (08:07→17:09)
[2021-06-26 08:38] LABS: CALCIUM, SERUM 7.6 mg/dL (8.5-10.1); CARBON DIOXIDE 16 mmol/L (21-32); CHLORIDE 97 mmol/L (98-107); CREATININE 6.1 mg/dL (0.6-1.3); GLUCOSE 103 mg/dL (74-106); MAGNESIUM 2.1 mg/dL (1.8-2.4); PHOSPHORUS 5.6 mg/dL (2.5-4.9); POTASSIUM 3.9 mmol/L (3.5-5.1); SODIUM SERUM 131 mmol/L (136-145); UREA NITROGEN, BLOOD 65 mg/dL (7-18)
[2021-06-26] MEDS: FERROUS SULFATE (325 MG) 325 MG/TAB TABLET PO SCH (08:52)
[2021-06-26] MEDS: CHOLECALCIFEROL 1,000 UNIT TABLET (VIT D3) PO SCH (08:52)
[2021-06-26] MEDS: ASCORBIC ACID 500 MG TABLET PO SCH (08:52)
[2021-06-26] MEDS: MAGNESIUM OXIDE 400 MG TABLET PO SCH ×2 (08:52→17:01)
[2021-06-26] MEDS: METOPROLOL TARTRATE 50 MG TABLET PO SCH ×3 (08:53→17:03)
[2021-06-26] MEDS: CLOTRIMAZOLE 1% 15 GM TUBE TP SCH ×2 (08:56→17:05)
--- NOTE | 2021-06-26 12:48 | NUR ---
RN NOTE PT BS 121. NO COVERAGE NEEDED AT THIS TIME PER SLIDING SCALE.
--- NOTE | 2021-06-26 13:00 | NUR ---
RN NOTE FAMILY CALLED: JASPAL GREGORY, REQUESTING PROVIDER TO CALL HER TO F/U ABOUT PT.
--- NOTE | 2021-06-26 13:35 | NUR ---
RN NOTE PER PHARMACY: PLEASE CALL TO LET PHARMACY KNOW WHEN THE PLAN FOR HD WILL TAKE PLACE IN ORDER TO ADJUST ABX REGIMENT ACCORDINGLY.
[2021-06-26] MEDS: SODIUM BICARBONATE 650 MG TABLET PO SCH ×2 (15:34→17:01)
[2021-06-26 15:43] LABS: BILIRUBIN,TOTAL 2.9 mg/dL (0.2-1.0)
[2021-06-26 16:00] VITALS: BP 99/61
[2021-06-26] MEDS: APIXABAN 5 MG TABLET PO SCH (17:02)
--- NOTE | 2021-06-26 17:10 | NUR ---
RN NOTE PT BS 125. NO COVERAGE NEEDED AT THIS TIME PER SLIDING SCALE.
--- NOTE | 2021-06-26 18:50 | NUR ---
RN CLOSING NOTE PT LYING IN BED WITH HOB SEMI FOWLERS. PT IS ON 2L O2 VIA NC AT 98% TOLERATING WELL WITHOUT SIGNS OF DISTRESS OR LABORED BREATHING AT THIS TIME. PT IS A/OX4 AND HAS A LANDERS CATHETER IN PLACE DRAINING URINE BY GRAVITY. PT HAD US BLADDER SCAN AND WAS NOT ABLE TO DETERMINE IF THERE WAS MORE URINE DUE TO LANDERS BEING INSERTED. PT HAS R GOVEA IV ACCESS 22G. VANCO WAS HELD DUE TO TROUGH BEING DRAWN LATE AFTER 1800. PT IS WAITING FOR HD CONSULT AND PLAN. BED IS LOCKED IN LOWEST POSITION X2 GUARD RAILS UP, CALL MAHMOOD IS WITHIN REACH, AND ALL HOSPITAL SAFETY MEASURES ARE IN PLACE. WILL ENDORSE TO DELIVERY OF SHOPPING NEWS NURSE FOR MICHELLE.
[2021-06-26] MEDS: VANCOMYCIN 500 MG in IV D5W 100 ML IV SCH (19:21)
[2021-06-26] MEDS: MIRTAZAPINE 15 MG TABLET PO SCH (21:46)
--- NOTE | 2021-06-26 21:46 | NUR ---
RN NOTE BLOOD SUGAR 124 AT THIS TIME.
--- NOTE | 2021-06-26 22:10 | NUR ---
RN NOTE RECEIVED PATIENT IN BED, AWAKE, ALERT, AND VERBALLY RESPONSIVE. ABLE TO MAKE NEEDS KNOWN. BREATHING EVEN AND UNLABORED. NOTED TO BE ON LOW FLOW O2, 2L/MIN NC. TOLERATING WELL. NO SOB NOTED. SKIN WARM AND DRY. DENIES PAIN AT THIS TIME. NOTED WITH RIGHT HAND 22G. PATENT. NO FLUIDS RUNNING. NOTED WITH INDWELLING LANDERS CATHETER. NO BLEEDING NOTED. NOTED WITH 100 ML URINE IN THE COLLECTION BAG. BED LOW, BILATERAL LEGS ELEVATED, IN LOCKED POSITION. CALL LIGHT WITHIN REACH. Addendum: 06/26/21 at 2215 by RICK GREENE RN LATE ENTRY
[2021-06-27] VITALS: BP 98/55
[2021-06-27] MEDS: PIPERACILLIN /TAZOBACTAM 2.25 G in IV D5W 50 ML IV SCH ×4 (02:46→19:47)
[2021-06-27] MEDS: ONDANSETRON HCL/PF 4 MG/2 ML VIAL IVP PRN ×2 (04:39→12:27)
--- NOTE | 2021-06-27 04:46 | NUR ---
RN NOTE PATIENT ON TOILET, HAVIN BOWEL MOVEMENT. PATIENT WITH EPISODE OF NAUSEA. NOTED TO BE GAGGING. NO EMESIS NOTED. ADMINISTERED ZOFRAN 4MG/2ML VIA IV PUSH PER MD ORDER. PATIENT BACK ON BED, HOB ELEVATED 90 DEGREES. PROVIDED EMESIS BASIN. WILL CONTINUE TO MONITOR. CALL LIGHT WITHIN REACH.
--- NOTE | 2021-06-27 06:26 | NUR ---
RN NOTE PATIENT WITH A TOTAL OF 100 ML URINE OUTPUT VIA LANDERS CATHETER.
[2021-06-27 07:26] LABS: BASOPHILS % (AUTO) 0.3 % (0.0-2.0); EOSINOPHILS % (AUTO) 1.1 % (0.0-6.0); HEMATOCRIT 36 % (39-51); HEMOGLOBIN 11.6 g/dL (13.5-17.5); LYMPHOCYTES # (AUTO) 1.8 K/uL (0.8-4.8); LYMPHOCYTES % (AUTO) 11.4 % (20.0-44.0); MEAN CORPUSCULAR HGB CONC 32 g/dl (31.0-36.0); MEAN CORPUSCULAR VOLUME 96 fL (80-96); MONOCYTES # (AUTO) 0.7 K/uL (0.1-1.30); MONOCYTES % (AUTO) 4.5 % (2.0-12.0); NEUTROPHILS # (AUTO) 12.8 K/uL (1.8-8.9); NEUTROPHILS % (AUTO) 82.7 % (43.0-81.0); PLATELET COUNT (AUTO) 139 K/uL (150-450); RED BLOOD CELL COUNT(AUTO) 3.76 MIL/uL (4.5-6.0); WHITE BLOOD COUNT (AUTO) 15.5 K/uL (4.3-11.0)
--- NOTE | 2021-06-27 07:30 | NUR ---
MS RN OPENING NOTE RECEIVED PATIENT IN BED, AWAKE, ALERT, AND VERBALLY RESPONSIVE. ABLE TO MAKE NEEDS KNOWN. BREATHING EVEN AND UNLABORED, NO S/S OF RESPIRATORY DISTRESS. NOTED TO BE ON LOW FLOW O2, 2L/MIN NC. TOLERATING WELL. NO SOB NOTED. DENIES PAIN AT THIS TIME. NOTED WITH RIGHT HAND 22G, INTACT AND PATENT. NO FLUIDS RUNNING. NOTED WITH INDWELLING LANDERS CATHETER IN PLACE. SAFETY PRECAUTIONS MAINTAINED. BED IN LOWEST LOCKED POSITION, SIDERAILS UP X2, HOB ELEVATED, CALL LIGHT AND TABLE WITHIN REACH. WILL CONTINUE TO MONITOR.
[2021-06-27] MEDS: PANTOPRAZOLE 40 MG TABLET.DR PO SCH (07:49)
[2021-06-27] MEDS: LEVOTHYROXINE SODIUM 125 MCG TABLET PO SCH (07:49)
[2021-06-27 07:50] LABS: CARBON DIOXIDE 19 mmol/L (21-32); CHLORIDE 96 mmol/L (98-107); CREATININE 6.8 mg/dL (0.6-1.3); GLUCOSE 101 mg/dL (74-106); POTASSIUM 3.9 mmol/L (3.5-5.1); SODIUM SERUM 132 mmol/L (136-145); UREA NITROGEN, BLOOD 72 mg/dL (7-18)
[2021-06-27 08:00] VITALS: BP 90/64
[2021-06-27] MEDS: BLOOD SUGAR DIAGNOSTIC 1 EACH STRIP IN SCH ×5 (08:00→21:20)
[2021-06-27] MEDS: MAGNESIUM OXIDE 400 MG TABLET PO SCH ×2 (08:22→16:44)
[2021-06-27] MEDS: SODIUM BICARBONATE 650 MG TABLET PO SCH ×3 (08:22→16:44)
[2021-06-27] MEDS: CHOLECALCIFEROL 1,000 UNIT TABLET (VIT D3) PO SCH (08:22)
[2021-06-27] MEDS: METOPROLOL TARTRATE 50 MG TABLET PO SCH ×3 (08:23→16:46)
[2021-06-27] MEDS: ASCORBIC ACID 500 MG TABLET PO SCH (08:24)
[2021-06-27] MEDS: FERROUS SULFATE (325 MG) 325 MG/TAB TABLET PO SCH (08:24)
[2021-06-27] MEDS: CLOTRIMAZOLE 1% 15 GM TUBE TP SCH ×2 (09:59→16:57)
--- NOTE | 2021-06-27 12:27 | NUR ---
RN NOTE PT COMPLAINED OF NAUSEA. NO EMESIS NOTED. PER PT REQUEST, ADMINISTERED ZOFRAN 4 MG IVP Q6H PRN PER ORDER. WILL CONTINUE TO MONITOR.
[2021-06-27 16:00] VITALS: BP 95/46
[2021-06-27] MEDS: APIXABAN 5 MG TABLET PO SCH (16:45)
--- NOTE | 2021-06-27 18:34 | NUR ---
RN CLOSING NOTE PT LYING AWAKE IN BED. A/O X4. PT IS ON 2L O2 VIA NC AT 98% TOLERATING WELL. NO SOB OR S/S OF RESPIRATORY DISTRESS. LANDERS CATHETER IN PLACE DRAINING URINE BY GRAVITY. PT HAS R HAND IV ACCESS 22G, INTACT AND PATENT. ALL NEEDS MET AT THIS TIME. SAFETY PRECAUTIONS MAINTAINED AT ALL TIMES. BED IN LOWEST POSITION, SIDE RAILS UP X2, HOB ELEVATED, CALL LIGHT AND TABLE WITHIN REACH. WILL ENDORSE TO ONCOMING NURSE FOR MICHELLE.
--- NOTE | 2021-06-27 19:50 | NUR ---
RN NOTE RECEIVED PATIENT IN BED, SLEEPING, EASILY AROUSABLE. AOX4, ABLE TO MAKE NEEDS KNOWN. BREATHING EVEN AND UNLABORED. NO SOB NOTED. TOLERATING LOW FLOW OXYGEN AT 2L/MIN. HOB ELEVATED 35 DEGREES. SKIN WARM AND DRY. DENIES PAIN AT THIS TIME. NOTED WITH RIGHT HAND 22G. PATENT. NOTED WITH LANDERS CATHETER, DRAINING RUBY URINE. BED LOW, IN LOCKED POSITION. CALL LIGHT WITHIN REACH.
[2021-06-27] MEDS: VANCOMYCIN HCL 0.75 GM in IV D5W 250 ML IV SCH (21:07)
[2021-06-27] MEDS: MIRTAZAPINE 15 MG TABLET PO SCH (21:08)
[2021-06-28] VITALS: BP 100/56
[2021-06-28] MEDS: PIPERACILLIN /TAZOBACTAM 2.25 G in IV D5W 50 ML IV SCH ×4 (01:17→20:47)
--- NOTE | 2021-06-28 07:30 | NUR ---
RN MORNING NOTE PT RECEIVED IN BED SEMI FOWLERS WITH 2L O2 VIA NC SATING 99% TOLERATING WELL WITHOUT SIGNS OF DISTRESS OR LABORED BREATHING. PT IS A/OX4 AND MS. PT HAS DIAPER AND LANDERS DRAINING TO GRAVITY. PT IS AMBULATORY WITH ASSISTANCE AND ON CARDIAC LOW FAT DIET. PT HAS R GOVEA 22G IV ACCESS NO FLUIDS INFUSING AT THIS TIME. CALL MAHMOOD IS WITHIN REACH, BED LOCKED IN LOWEST POSITION, ALL HOSPITAL PRECAUTIONS ARE IN PLACE, WILL CONTINUE TO MONITOR THIS SHIFT.
[2021-06-28] MEDS: PANTOPRAZOLE 40 MG TABLET.DR PO SCH (07:46)
[2021-06-28] MEDS: LEVOTHYROXINE SODIUM 125 MCG TABLET PO SCH (07:46)
[2021-06-28] MEDS: BLOOD SUGAR DIAGNOSTIC 1 EACH STRIP IN SCH ×4 (07:46→21:27)
[2021-06-28] MEDS: INSULIN REGULAR, HUMAN 100 UNIT/ML 3 ML VIAL SQ PRN ×4 (07:53→21:38)
--- NOTE | 2021-06-28 07:53 | NUR ---
RN NOTE PT BS 107. PER SLIDING SCALE, NO COVERAGE NEEDED AT THIS TIME.
[2021-06-28 08:00] VITALS: BP 90/49
[2021-06-28] MEDS: MAGNESIUM OXIDE 400 MG TABLET PO SCH ×2 (08:55→17:30)
[2021-06-28] MEDS: FERROUS SULFATE (325 MG) 325 MG/TAB TABLET PO SCH (08:55)
[2021-06-28] MEDS: SODIUM BICARBONATE 650 MG TABLET PO SCH ×3 (08:55→17:35)
[2021-06-28] MEDS: ASCORBIC ACID 500 MG TABLET PO SCH (08:55)
[2021-06-28] MEDS: METOPROLOL TARTRATE 50 MG TABLET PO SCH ×3 (08:55→17:00)
[2021-06-28] MEDS: CHOLECALCIFEROL 1,000 UNIT TABLET (VIT D3) PO SCH (08:55)
[2021-06-28] MEDS: CLOTRIMAZOLE 1% 15 GM TUBE TP SCH ×2 (08:56→17:31)
[2021-06-28] MEDS: ONDANSETRON HCL/PF 4 MG/2 ML VIAL IVP PRN (09:58)
--- NOTE | 2021-06-28 10:00 | NUR ---
RN NOTE PT EXPERIENCING NAUSEA. NO EMESIS. ZOFRAN GIVEN. WILL REASSESS.
--- NOTE | 2021-06-28 10:52 | NUR ---
RN NOTE CALLED LAB TO F/U COVID PCR TEST, PENDING SINCE 06/23/21. LAB REPORTED THAT PCR TEST IS STILL PENDING BECAUSE IT IS SENT TO OUTSIDE LAB FOR VERIFICATION. LAB WILL ATTEMPT TO F/U WITH OUTSIDE LAB FOR RESULTS.
--- NOTE | 2021-06-28 11:04 | NUR ---
RN NOTES LAB CALLED TO REPORT PTS COVID PCR NEGATIVE. RELAYED MESSAGE TO PROVIDER. AND PER FAMILY'S REQUEST WILL CALL TO GIVE RESULTS.
--- NOTE | 2021-06-28 11:46 | NUR ---
RN NOTE PT BS 123. PER SLIDING SCALE, NO COVERAGE NEEDED AT THIS TIME.
[2021-06-28] MEDS: IV NS 0.9% 1,000 ML IV PRN (12:01)
[2021-06-28 14:37] LABS: BASOPHILS # (AUTO) 0.2 K/uL (0.0-0.2); BASOPHILS % (AUTO) 1.4 % (0.0-2.0); EOSINOPHILS % (AUTO) 0.6 % (0.0-6.0); HEMATOCRIT 34 % (39-51); HEMOGLOBIN 10.8 g/dL (13.5-17.5); LYMPHOCYTES # (AUTO) 1.9 K/uL (0.8-4.8); LYMPHOCYTES % (AUTO) 12.1 % (20.0-44.0); MEAN CORPUSCULAR HGB CONC 32 g/dl (31.0-36.0); MEAN CORPUSCULAR VOLUME 98 fL (80-96); MONOCYTES # (AUTO) 0.6 K/uL (0.1-1.30); NEUTROPHILS # (AUTO) 13.1 K/uL (1.8-8.9); NEUTROPHILS % (AUTO) 81.9 % (43.0-81.0); PLATELET COUNT (AUTO) 149 K/uL (150-450); RED BLOOD CELL COUNT(AUTO) 3.47 MIL/uL (4.5-6.0)
[2021-06-28 14:47] LABS: CALCIUM, SERUM 7.7 mg/dL (8.5-10.1); CARBON DIOXIDE 16 mmol/L (21-32); CHLORIDE 94 mmol/L (98-107); GLUCOSE 138 mg/dL (74-106); MAGNESIUM 2.3 mg/dL (1.8-2.4); PHOSPHORUS 7.3 mg/dL (2.5-4.9); POTASSIUM 4.5 mmol/L (3.5-5.1); SODIUM SERUM 129 mmol/L (136-145); UREA NITROGEN, BLOOD 77 mg/dL (7-18)
[2021-06-28 14:58] LABS: CREATININE 7.7 mg/dL (0.6-1.3)
[2021-06-28 16:00] VITALS: BP 91/44
[2021-06-28 17:00] VITALS: BP 82/41
--- NOTE | 2021-06-28 17:12 | NUR ---
RN NOTE NOTIFIED TERESA SUH OF PTS BP OF 82/41. PT IS A/OX4. PER ANGELI, WILL ADMINISTER ONE TIME BOLUS OF 500ML NS. ALSO CONTACTED DR. LAYNE VIA TEXT OF PLAN AND ADVISED I CONSULTED WITH ANGELI.
[2021-06-28] MEDS ORDERED: IV NS 0.9% 500 ML IV ONE (17:30)
--- NOTE | 2021-06-28 18:40 | NUR ---
PT BS 123. PER SLIDING SCALE, NO COVERAGE NEEDED AT THIS TIME.
--- NOTE | 2021-06-28 19:00 | NUR ---
RN CLOSING NOTE PT IS LYING COMFORTABLY IN BED WITH HOB 30 DEGREES WITH 2L O2 VIA NC SATING 99% TOLERATING WELL WITHOUT SIGNS OF DISTRESS OR LABORED BREATHING. PT IS A/OX4 AND MS. PT HAS DIAPER AND LANDERS DRAINING TO GRAVITY. PT IS AMBULATORY WITH ASSISTANCE AND ON CARDIAC LOW FAT DIET. PT HAS R GOVEA 22G IV ACCESS INFUSING 500 ML NS ONE TIME BOLUS AT THIS TIME. CALL MAHMOOD IS WITHIN REACH, BED LOCKED IN LOWEST POSITION, ALL HOSPITAL PRECAUTIONS ARE IN PLACE, WILL ENDORSE TO STEEPING PRESS TENDER NURSE FOR MICHELLE.
[2021-06-28 20:00] VITALS: BP 100/55
[2021-06-28] MEDS: MIRTAZAPINE 15 MG TABLET PO SCH (21:27)
[2021-06-28] MEDS: VANCOMYCIN HCL 0.75 GM in IV D5W 250 ML IV SCH (21:27)
--- NOTE | 2021-06-28 22:15 | NUR ---
LOST AND FOUND CLERK NOTE PATIENT WAS TRANSFERRED TO [facility] A/O X4. PATIENT IS ON NC AT 2 L WITH O2 SAT 100%. NO SIGNS OF DISTRESS NOTED AT TIME OF TRANSFER. ALL PATIENT'S BELONGINGS WERE TRANSFERRED. PATIENT WAS ENDORSED TO ЕКАТЕРИНА FONTANA FOR CONTINUITY OF CARE.
--- NOTE | 2021-06-28 22:30 | NUR ---
MS/STATE EPIDEMIOLOGIST NOTE PATIENT TRANSFERRED FROM [facility] WITH REPORT GIVEN FROM RN RANDEE. PATIENT ARRIVED TO UNIT VIA BED AND 2 STAFF MEMBERS. PATIENT IS IN ROOM 323-2. PATIENT IS ALERT AND ORIENTED X 4. ABLE TO MAKE NEEDS KNOWN. DENIES PAIN AT THIS TIME. CONTINUES ON O2 2L VIA NC WITH NO S/SX OF RESPIRATORY DISTRESS NOTED. IV ACCESS TO LEFT HAND #22G INTACT AND PATENT. CONTINUES ON IVF NS 0.9% @ 75ML/HR. CONTINUES ON IV ABX. LANDERS CATHETER IN PLACE DRAINING YELLOW URINE TO GRAVITY. CALL LIGHT WITHIN REACH. ASPIRATION, FALL AND SAFETY PRECAUTIONS MAINTAINED. WILL CONTINUE TO MONITOR.
[2021-06-28 23:00] VITALS: BP 110/56
[2021-06-29] MEDS: ACETAMINOPHEN 325 MG TABLET PO PRN ×2 (01:16→13:29)
[2021-06-29] MEDS: PIPERACILLIN /TAZOBACTAM 2.25 G in IV D5W 50 ML IV SCH ×4 (02:23→20:26)
[2021-06-29] MEDS: IV NS 0.9% 1,000 ML IV PRN ×2 (05:55→20:10)
--- NOTE | 2021-06-29 06:20 | NUR ---
MS/RN CLOSING NOTE PATIENT CURRENTLY RESTING IN BED. AWAKE, ALERT AND ORIENTED X 4. DENIES PAIN AT THIS TIME. CONTINUES ON O2 2L VIA NC WITH NO S/SX OF RESPIRATORY DISTRESS NOTED. IV ACCESS TO LEFT HAND #22G INTACT AND PATENT. CONTINUES ON IVF NS 0.9% @ 75ML/HR. CONTINUES ON IV ABX. LANDERS CATHETER IN PLACE DRAINING TO GRAVITY. CALL LIGHT WITHIN REACH. ASPIRATION, FALL AND SAFETY PRECAUTIONS MAINTAINED. WILL CONTINUE TO MONITOR.
[2021-06-29] MEDS: BLOOD SUGAR DIAGNOSTIC 1 EACH STRIP IN SCH ×4 (06:43→22:47)
[2021-06-29 07:25] LABS: BASOPHILS % (AUTO) 0.2 % (0.0-2.0); HEMATOCRIT 30 % (39-51); HEMOGLOBIN 9.9 g/dL (13.5-17.5); LYMPHOCYTES % (AUTO) 13.7 % (20.0-44.0); MEAN CORPUSCULAR HGB CONC 33 g/dl (31.0-36.0); MEAN CORPUSCULAR VOLUME 96 fL (80-96); MONOCYTES # (AUTO) 0.6 K/uL (0.1-1.30); MONOCYTES % (AUTO) 4.2 % (2.0-12.0); NEUTROPHILS # (AUTO) 11.6 K/uL (1.8-8.9); NEUTROPHILS % (AUTO) 80.9 % (43.0-81.0); PLATELET COUNT (AUTO) 129 K/uL (150-450); RED BLOOD CELL COUNT(AUTO) 3.18 MIL/uL (4.5-6.0); WHITE BLOOD COUNT (AUTO) 14.3 K/uL (4.3-11.0)
[2021-06-29 08:00] VITALS: BP 90/45
[2021-06-29 08:03] LABS: CARBON DIOXIDE 17 mmol/L (21-32); CHLORIDE 99 mmol/L (98-107); GLUCOSE 96 mg/dL (74-106); MAGNESIUM 2.1 mg/dL (1.8-2.4); PHOSPHORUS 6.5 mg/dL (2.5-4.9); POTASSIUM 4.2 mmol/L (3.5-5.1); SODIUM SERUM 132 mmol/L (136-145); UREA NITROGEN, BLOOD 71 mg/dL (7-18)
--- NOTE | 2021-06-29 08:08 | NUR ---
MS RN OPENING NOTE Patient in bed, asleep. A/O x 4. On O@ at 2 LPM via NC, No SOB or s/s of distress noted. IV access on Left hand #22G infusing NS at 75 ml/hr. Yarbrough catheter noted, intact; no signs of infiltration. Safety precautions in place: bed in low, locked position; siderails up x 2; call light within reach. Will continue to monitor.
[2021-06-29 08:12] LABS: CREATININE 7.5 mg/dL (0.6-1.3)
[2021-06-29] MEDS: FERROUS SULFATE (325 MG) 325 MG/TAB TABLET PO SCH (08:51)
[2021-06-29] MEDS: PANTOPRAZOLE 40 MG TABLET.DR PO SCH (08:51)
[2021-06-29] MEDS: MAGNESIUM OXIDE 400 MG TABLET PO SCH ×2 (08:51→17:16)
[2021-06-29] MEDS: ASCORBIC ACID 500 MG TABLET PO SCH (08:51)
[2021-06-29] MEDS: CHOLECALCIFEROL 1,000 UNIT TABLET (VIT D3) PO SCH (08:51)
[2021-06-29] MEDS: SODIUM BICARBONATE 650 MG TABLET PO SCH ×3 (08:51→17:15)
[2021-06-29] MEDS: LEVOTHYROXINE SODIUM 125 MCG TABLET PO SCH (08:51)
[2021-06-29] MEDS: METOPROLOL TARTRATE 50 MG TABLET PO SCH ×4 (08:52→17:00)
[2021-06-29] MEDS: CLOTRIMAZOLE 1% 15 GM TUBE TP SCH ×2 (09:00→17:15)
--- NOTE | 2021-06-29 09:00 | NUR ---
RN NOTE Metoprolol held due to low BP :90/45. aware.
[2021-06-29] MEDS ORDERED: METOPROLOL TARTRATE 50 MG TABLET ONE (13:18)
--- NOTE | 2021-06-29 13:28 | NUR ---
RN NOTE Held Metoprolol due to low BP 99/51. aware.
[2021-06-29 16:00] VITALS: BP 82/49
--- NOTE | 2021-06-29 17:00 | NUR ---
RN NOTE Held Metoprolol due to low BP 82/49. Charge nurse aware.
--- NOTE | 2021-06-29 19:15 | NUR ---
MS RN OPENING NOTES: RECEIVED PATIENT LAYING IN BED, AWAKE, A/O X3. NO S/S OF DISTRESS. PATIENT DENIES ANY PAIN AT THIS TIME. RESPIRATION EVEN AND UNLABORED WITH EQUAL RISE AND FALL OF THE CHEST, ON ROOM AIR. ALL SAFETY MEASURES IN PLACE. WILL CONTINUE TO MONITOR.
--- NOTE | 2021-06-29 19:31 | NUR ---
MS RN CLOSING NOTE Patient in bed, resting comfortably. A/O x 4. On O@ at 2 LPM via NC, No SOB or s/s of distress noted. IV access on Left hand #22G infusing NS at 75 ml/hr. Yarbrough catheter noted, intact with an output of 50cc; no signs of infiltration. Safety precautions maintained: bed in low, locked position; siderails up x 2; call light within reach. Will continue to monitor.
[2021-06-29] MEDS ORDERED: VANCOMYCIN 500 MG in IV D5W 100 ML IV SCH (20:00)
[2021-06-29 20:20] VITALS: BP 134/54
[2021-06-29] MEDS: MIRTAZAPINE 15 MG TABLET PO SCH (22:07)
[2021-06-30] MEDS: PIPERACILLIN /TAZOBACTAM 2.25 G in IV D5W 50 ML IV SCH ×2 (02:34→07:51)
[2021-06-30] MEDS: BLOOD SUGAR DIAGNOSTIC 1 EACH STRIP IN SCH ×4 (06:38→21:27)
[2021-06-30 06:48] LABS: BASOPHILS # (AUTO) 0.1 K/uL (0.0-0.2); BASOPHILS % (AUTO) 0.4 % (0.0-2.0); HEMATOCRIT 35 % (39-51); HEMOGLOBIN 11.2 g/dL (13.5-17.5); LYMPHOCYTES # (AUTO) 2.3 K/uL (0.8-4.8); LYMPHOCYTES % (AUTO) 11.8 % (20.0-44.0); MEAN CORPUSCULAR HGB CONC 32 g/dl (31.0-36.0); MEAN CORPUSCULAR VOLUME 97 fL (80-96); MONOCYTES # (AUTO) 0.7 K/uL (0.1-1.30); MONOCYTES % (AUTO) 3.8 % (2.0-12.0); NEUTROPHILS # (AUTO) 15.8 K/uL (1.8-8.9); PLATELET COUNT (AUTO) 155 K/uL (150-450); RED BLOOD CELL COUNT(AUTO) 3.59 MIL/uL (4.5-6.0); WHITE BLOOD COUNT (AUTO) 19.1 K/uL (4.3-11.0)
[2021-06-30 07:14] LABS: CARBON DIOXIDE 17 mmol/L (21-32); CHLORIDE 95 mmol/L (98-107); GLUCOSE 98 mg/dL (74-106); MAGNESIUM 2.5 mg/dL (1.8-2.4); PHOSPHORUS 7.8 mg/dL (2.5-4.9); POTASSIUM 4.9 mmol/L (3.5-5.1); SODIUM SERUM 131 mmol/L (136-145)
[2021-06-30 07:26] LABS: CREATININE 8.7 mg/dL (0.6-1.3); UREA NITROGEN, BLOOD 85 mg/dL (7-18)
--- NOTE | 2021-06-30 07:30 | NUR ---
MS RN OPENING NOTES RECEIVED PATIENT AWAKE ON BED AND A/O X4. ON O2 AT 2LPM VIA NASAL CANNULA SATURATING WELL AT 98%. NO SOB NOTED. NOT IN DISTRESS. WITH NO COMPLAINTS OF PAIN AT THIS TIME. WITH IV ACCESS AT LEFT HAND G22 WITH NS AT 75MML/HR INFUSING WELL. IV SITE IS PATENT AND INTACT. SAFETY MEASURES IN PLACED. CALL LIGHT WITHIN REACH. BED ON LOWEST AND LOCKED POSITION, SIDE RAILS UP X2. WILL CONTINUE TO MONITOR.
[2021-06-30] MEDS: PANTOPRAZOLE 40 MG TABLET.DR PO SCH (07:51)
[2021-06-30] MEDS: LEVOTHYROXINE SODIUM 125 MCG TABLET PO SCH (07:51)
[2021-06-30 08:00] VITALS: BP 91/47
[2021-06-30] MEDS: ASCORBIC ACID 500 MG TABLET PO SCH (08:37)
[2021-06-30] MEDS: MAGNESIUM OXIDE 400 MG TABLET PO SCH ×2 (08:37→17:13)
[2021-06-30] MEDS: METOPROLOL TARTRATE 50 MG TABLET PO SCH ×2 (08:38→17:00)
[2021-06-30] MEDS: CHOLECALCIFEROL 1,000 UNIT TABLET (VIT D3) PO SCH (08:38)
[2021-06-30] MEDS: FERROUS SULFATE (325 MG) 325 MG/TAB TABLET PO SCH (08:38)
[2021-06-30] MEDS: SODIUM BICARBONATE 650 MG TABLET PO SCH ×3 (08:38→17:13)
[2021-06-30] MEDS: CLOTRIMAZOLE 1% 15 GM TUBE TP SCH ×2 (08:51→18:25)
[2021-06-30 11:12] LABS: BILIRUBIN,DIRECT 1.8 mg/dL (0.0-0.2); BILIRUBIN,TOTAL 2.3 mg/dL (0.2-1.0); TOTAL PROTEIN, SERUM 5.4 g/dL (6.4-8.2)
[2021-06-30 11:27] LABS: ALBUMIN 1.3 g/dL (3.4-5.0)
[2021-06-30] MEDS ORDERED: MIDODRINE HCL (5MG) 5 MG TABLET ONE (12:39)
[2021-06-30] MEDS: MIDODRINE HCL (5MG) 5 MG TABLET PO SCH ×2 (12:46→17:14)
[2021-06-30 16:00] VITALS: BP 100/91
[2021-06-30] MEDS: IV NS 0.9% 1,000 ML IV PRN (17:16)
--- NOTE | 2021-06-30 19:30 | NUR ---
MS RN CLOSING NOTES PATIENT RESTING ON BED AND A/O X4. ON O2 AT 2LPM VIA NASAL CANNULA SATURATING WELL AT 98%. NO SOB NOTED. NOT IN DISTRESS. WITH NO COMPLAINTS OF PAIN AT THIS TIME. WITH IV ACCESS AT LEFT HAND G22 WITH NS AT 75MML/HR INFUSING WELL. IV SITE IS PATENT AND INTACT. SAFETY MEASURES IN PLACED. CALL LIGHT WITHIN REACH. BED ON LOWEST AND LOCKED POSITION, SIDE RAILS UP X2. WILL ENDORSE TO NEXT SHIFT FOR MICHELLE.
--- NOTE | 2021-06-30 19:30 | NUR ---
RN MS OPENING NOTE PATIENT RECEIVED AWAKE IN HIS BED. A/OX3, ON 2LPM NC, NO S/S OF DISTRESS. LH 22G W/ NS @ 75ML/HR. NO PAIN NOTED. SAFETY MEASURES FOLLOWED: BED AT LOWEST POSITION, RAILS UPX2, CALL MAHMOOD WITHIN REACH. WILL CONTINUE TO MONITOR PATIENT THROUGHOUT SHIFT.
[2021-06-30 20:15] VITALS: BP 95/48
[2021-06-30] MEDS: MIRTAZAPINE 15 MG TABLET PO SCH (21:15)
--- NOTE | 2021-06-30 21:28 | NUR ---
MS RN NOTE BS ACCUCHECK 120MG/DL. NO INSULIN NEEDED PER SCALE. WILL MONITOR FOR HYPERGLYCEMIA. PATIENT IS EATING WELL AND TAKING IN FLUIDS.
[2021-07-01] MEDS: BLOOD SUGAR DIAGNOSTIC 1 EACH STRIP IN SCH ×4 (06:30→21:36)
[2021-07-01] MEDS: IV NS 0.9% 1,000 ML IV PRN (06:30)
--- NOTE | 2021-07-01 06:31 | NUR ---
RN NOTE BS 105 MG/DL. NO COVERAGE GIVEN. WILL MONITOR PATIENT FOR HYPO/HYPERGLYCEMIA. JUICE OFFERED.
[2021-07-01 06:34] LABS: BASOPHILS # (AUTO) 0.1 K/uL (0.0-0.2); BASOPHILS % (AUTO) 0.5 % (0.0-2.0); EOSINOPHILS % (AUTO) 0.6 % (0.0-6.0); HEMATOCRIT 37 % (39-51); LYMPHOCYTES # (AUTO) 2.5 K/uL (0.8-4.8); MEAN CORPUSCULAR HGB CONC 32 g/dl (31.0-36.0); MEAN CORPUSCULAR VOLUME 96 fL (80-96); MONOCYTES # (AUTO) 0.7 K/uL (0.1-1.30); MONOCYTES % (AUTO) 3.2 % (2.0-12.0); NEUTROPHILS # (AUTO) 18.9 K/uL (1.8-8.9); NEUTROPHILS % (AUTO) 84.7 % (43.0-81.0); PLATELET COUNT (AUTO) 167 K/uL (150-450); RED BLOOD CELL COUNT(AUTO) 3.86 MIL/uL (4.5-6.0); WHITE BLOOD COUNT (AUTO) 22.3 K/uL (4.3-11.0)
--- NOTE | 2021-07-01 06:55 | NUR ---
MS RN CLOSING NOTE PATIENT ASLEEP IN BED. NO S/S OF DISTRESS; BREATHING SYMMETRICAL. NO PAIN NOTED (NO GRIMACING, NO MOANING). LANDERS IN PLACE DRAINING WITHOUT OBSTRUCTION WITH 100CC OF CLEAR, RUBY URINE. LFA 20G. SAFETY MEASURES IN PLACE: BED AT LOWEST POSITION, RAILS X 2, CALL MAHMOOD WITHIN REACH. WILL ENDORSE TO THE DAY SHIFT FOR MICHELLE.
[2021-07-01 07:17] LABS: ALANINE AMINOTRANSFERASE 57 U/L (12-78); ASPARTATE AMINOTRANSFERASE 120 U/L (15-37); BILIRUBIN,DIRECT 1.9 mg/dL (0.0-0.2); BILIRUBIN,TOTAL 2.4 mg/dL (0.2-1.0); CALCIUM, SERUM 7.9 mg/dL (8.5-10.1); CARBON DIOXIDE 15 mmol/L (21-32); CHLORIDE 96 mmol/L (98-107); GLUCOSE 93 mg/dL (74-106); POTASSIUM 5.4 mmol/L (3.5-5.1); SODIUM SERUM 132 mmol/L (136-145); TOTAL PROTEIN, SERUM 5.7 g/dL (6.4-8.2)
[2021-07-01 07:38] LABS: UREA NITROGEN, BLOOD 90 mg/dL (7-18)
[2021-07-01 07:39] LABS: ALBUMIN 1.3 g/dL (3.4-5.0); ALKALINE PHOSPHATASE 2327 U/L (46-116); CREATININE 9.4 mg/dL (0.6-1.3)
[2021-07-01 08:00] VITALS: BP 98/61
[2021-07-01] MEDS: METOPROLOL TARTRATE 50 MG TABLET PO SCH (09:00)
[2021-07-01] MEDS: SODIUM BICARBONATE 650 MG TABLET PO SCH ×3 (09:00→17:08)
[2021-07-01] MEDS: CHOLECALCIFEROL 1,000 UNIT TABLET (VIT D3) PO SCH (09:39)
[2021-07-01] MEDS: FERROUS SULFATE (325 MG) 325 MG/TAB TABLET PO SCH (09:41)
[2021-07-01] MEDS: LEVOTHYROXINE SODIUM 125 MCG TABLET PO SCH (09:41)
[2021-07-01] MEDS: ASCORBIC ACID 500 MG TABLET PO SCH (09:41)
[2021-07-01] MEDS: MAGNESIUM OXIDE 400 MG TABLET PO SCH ×2 (09:41→17:07)
[2021-07-01] MEDS: PANTOPRAZOLE 40 MG TABLET.DR PO SCH (09:41)
[2021-07-01] MEDS: MIDODRINE HCL (5MG) 5 MG TABLET PO SCH ×3 (09:43→17:09)
[2021-07-01] MEDS: ACETAMINOPHEN 325 MG TABLET PO PRN (10:05)
[2021-07-01] MEDS: CLOTRIMAZOLE 1% 15 GM TUBE TP SCH ×2 (10:06→17:14)
[2021-07-01] MEDS: INSULIN REGULAR, HUMAN 100 UNIT/ML 3 ML VIAL SQ PRN ×3 (11:59→21:47)
[2021-07-01 16:00] VITALS: BP 104/54
[2021-07-01] MEDS ORDERED: SODIUM POLYSTYRENE SULFONATE 15 G/60 ML BOTTLE PO ONE (17:00)
[2021-07-01] MEDS: Sodium Bicarbonate 150 MEQ in IV D5W 1,000 ML IV SCH (17:50)
[2021-07-01] MEDS: ALBUMIN 25% 25 GM in PREMIX 1 EA IV SCH ×2 (18:10→23:18)
--- NOTE | 2021-07-01 18:59 | NUR ---
MS RN NOTE: ATTEMPTED IV INSERTION TO R FA X2 TO RUN ALBUMIN INFUSION. IV INSERTION ATTEMPTS UNSUCCESSFUL. Pt C/O BLE GENERALIZED PAIN 02/14. REPOSITIONING PROVIDED MINIMAL RELIEF. OFFERED TYLENOL PRN, Pt. STATED, "DON'T BOTHER, THAT DOESN'T DO NOTHING." NOTIFIED MD VIA TO CONSIDER ALTERNATIVE/ADJUNCT TX FOR PAIN RELIEF. REPLY PENDING.
--- NOTE | 2021-07-01 19:15 | NUR ---
RN OPENING NOTE PATIENT IS A/O X 4, PATIENT'S EYES CLOSED, EASILY AWAKENED. PATIENT HAS 2 L O2 SUPPLEMENTATION ON, TOLERATING WELL. PATIENT HAS A LANDERS IN PLACE WITH RUBY/TEA COLORED URINE DRAINING. PATIENT HAS A L HAND 22 G WITH SODIUM BICARB ON GOING. ALBUMIN DOSE ENDORSED BY DAY SHIFT RN TO BE GIVEN AT NIGHT. ALSO ENDORSED ALTERNATIVE PAIN MEDICINE, WILL CHECK MD RESPONSE. SAFETY MEASURES IN PLACE: BED LOCKED AND IN LOWEST POSITION, CALL LIGHT WITHIN REACH. SIDE RAILS UP. WILL MONITOR PATIENT CLOSELY.
[2021-07-01 20:00] VITALS: BP 97/57
--- NOTE | 2021-07-01 20:30 | NUR ---
RN NOTE IV ACCESS ON L HAND INFILTRATED. MULTIPLE IN ACCESS ATTEMPTED TO BE INSERTED, NONE SUCCESSFUL. WILL ASK [facility] RN FOR ASSISTANCE. HALF OF ALBUMIN DOSE TO BE COMPLETED ONCE NEW IV INSERTED AND SODIUM BICARB ON PAUSE AT THIS TIME. CHARGE NURSE AWARE.
[2021-07-01] MEDS: METOPROLOL TARTRATE 25 MG TABLET PO SCH (21:00)
[2021-07-01] MEDS: MIRTAZAPINE 15 MG TABLET PO SCH (21:36)
[2021-07-01] MEDS: HYDROCODONE/APAP 10/325MG TABLET PO PRN (22:04)
--- NOTE | 2021-07-01 22:06 | NUR ---
RN NOTE BS 131 MG/DL. 2 UNITS GIVEN. SNACKS OFFERED, REFUSED AT THIS TIME. WILL MONITOR PATIENT FOR HYPO GLYCEMIA. NORCO 10/325 GIVEN FOR GENERALIZED BODY PAIN OF 5/10 ON PAIN SCALE. WILL REASSESS PAIN AT A LATER TIME.
--- NOTE | 2021-07-01 23:20 | NUR ---
RN NOTE DAVID RN INSERTED NEW IV ON R HAND/THUMB 24G.
[2021-07-02] MEDS: ALBUMIN 25% 25 GM in PREMIX 1 EA IV SCH ×2 (04:17→11:30)
--- NOTE | 2021-07-02 06:53 | NUR ---
RN CLOSING NOTE PATIENT IS A/O X 4, PATIENT'S EYES CLOSED, ABLE TO MAKE NEEDS KNOWN. PATIENT HAS 2 L O2 SUPPLEMENTATION ON, TOLERATING WELL, 99%. PATIENT HAS A LANDERS IN PLACE WITH RUBY/TEA COLORED URINE DRAINING. PATIENT'S R HAND 24 G STILL HAS NA BICARB ON GOING AT 70 ML/HR. 3 DOSES OF ALBUMIN SUCCESSFULLY GIVEN. PATIENT'S PAIN MANAGED WITH NORCO 10/325. PATIENT'S PAIN 3/10 AT THIS TIME, PATIENT DOES NOT WANT ANY PAIN MEDICATION, STATES THAT HE WILL JUST WAIT. BS IS 116 MG/DL, NO COVERAGE GIVEN. SAFETY MEASURES IN PLACE: BED LOCKED AND IN LOWEST POSITION, CALL LIGHT WITHIN REACH. SIDE RAILS UP. ALL NEEDS MET AND ATTENDED, ALL ORDERS CARRIED OUT. WILL ENDORSE TO DAY SHIFT NURSE FOR MICHELLE.
--- NOTE | 2021-07-02 07:15 | NUR ---
RN NOTES PATIENT IS A/O X 4, PATIENT'S EYES CLOSED, ABLE TO BE AWAKENED AND MAKE NEEDS KNOWN. ON 2L O2 NO RESPIRATORY DISTRESS. LANDERS CATH IN PLACE DRAINING DARK YELLOW COLORED URINE. R HAND 24 G WITH NA-BICARB ON GOING AT 70 ML/HR. SAFETY MEASURES IN PLACE: BED LOCKED AND IN LOWEST POSITION, CALL LIGHT WITHIN REACH. SIDE RAILS UP. WILL CONTINUE TO MONITOR.
--- NOTE | 2021-07-02 07:45 | NUR ---
RN NOTES PER SUDA FROM LAB, UNABLE TO DRAW BLOOD, PATIENT IS HARD STICK. WILL TRY AGAIN LATER.
[2021-07-02] MEDS: BLOOD SUGAR DIAGNOSTIC 1 EACH STRIP IN SCH ×4 (07:46→22:22)
[2021-07-02 08:00] VITALS: BP 112/53
[2021-07-02] MEDS: PANTOPRAZOLE 40 MG TABLET.DR PO SCH (08:17)
[2021-07-02] MEDS: SODIUM BICARBONATE 650 MG TABLET PO SCH ×3 (08:17→16:42)
[2021-07-02] MEDS: LEVOTHYROXINE SODIUM 125 MCG TABLET PO SCH (08:17)
[2021-07-02] MEDS: CHOLECALCIFEROL 1,000 UNIT TABLET (VIT D3) PO SCH (08:17)
[2021-07-02] MEDS: MAGNESIUM OXIDE 400 MG TABLET PO SCH ×2 (08:17→16:47)
[2021-07-02] MEDS: ASCORBIC ACID 500 MG TABLET PO SCH (08:18)
[2021-07-02] MEDS: FERROUS SULFATE (325 MG) 325 MG/TAB TABLET PO SCH (08:18)
[2021-07-02] MEDS: MIDODRINE HCL (5MG) 5 MG TABLET PO SCH ×3 (08:18→16:45)
[2021-07-02] MEDS: METOPROLOL TARTRATE 25 MG TABLET PO SCH ×2 (08:19→21:11)
[2021-07-02] MEDS: CLOTRIMAZOLE 1% 15 GM TUBE TP SCH ×2 (08:20→16:57)
--- NOTE | 2021-07-02 08:56 | NUR ---
RN NOTES PHLEB TECH AT BEDSIDE FOR BLOOD DRAW.
[2021-07-02 10:09] LABS: CALCIUM, SERUM 8.4 mg/dL (8.5-10.1); CARBON DIOXIDE 20 mmol/L (21-32); CHLORIDE 96 mmol/L (98-107); GLUCOSE 116 mg/dL (74-106); POTASSIUM 4.9 mmol/L (3.5-5.1); SODIUM SERUM 135 mmol/L (136-145)
[2021-07-02 10:11] LABS: CREATININE 9.9 mg/dL (0.6-1.3); UREA NITROGEN, BLOOD 95 mg/dL (7-18)
[2021-07-02] MEDS: Sodium Bicarbonate 150 MEQ in IV D5W 1,000 ML IV SCH (11:30)
[2021-07-02] MEDS: INSULIN REGULAR, HUMAN 100 UNIT/ML 3 ML VIAL SQ PRN ×3 (11:46→22:22)
[2021-07-02 16:00] VITALS: BP 114/94
[2021-07-02] MEDS: HYDROCODONE/APAP 10/325MG TABLET PO PRN ×2 (16:42→23:21)
--- NOTE | 2021-07-02 17:35 | NUR ---
RN NOTES CONSENT FORM SIGNED BY PATIENT AND PLACED IN THE CHART.
[2021-07-02 18:08] LABS: BASOPHILS # (AUTO) 0.1 K/uL (0.0-0.2); BASOPHILS % (AUTO) 0.8 % (0.0-2.0); EOSINOPHILS % (AUTO) 1.4 % (0.0-6.0); HEMATOCRIT 33 % (39-51); HEMOGLOBIN 10.7 g/dL (13.5-17.5); LYMPHOCYTES # (AUTO) 1.7 K/uL (0.8-4.8); LYMPHOCYTES % (AUTO) 10.7 % (20.0-44.0); MEAN CORPUSCULAR HGB CONC 32 g/dl (31.0-36.0); MEAN CORPUSCULAR VOLUME 96 fL (80-96); MONOCYTES # (AUTO) 0.5 K/uL (0.1-1.30); MONOCYTES % (AUTO) 3.4 % (2.0-12.0); NEUTROPHILS % (AUTO) 83.7 % (43.0-81.0); PLATELET COUNT (AUTO) 137 K/uL (150-450); RED BLOOD CELL COUNT(AUTO) 3.47 MIL/uL (4.5-6.0); WHITE BLOOD COUNT (AUTO) 15.5 K/uL (4.3-11.0)
--- NOTE | 2021-07-02 18:52 | NUR ---
RN NOTES RECEIVED ORDER FOR MIDLINE INSERTION FROM DR. LEBRON, NOTED AND CARRIED OUT. PATIENT CURRENTLY RESTING IN BED, EYES CLOSED, ABLE TO BE AWAKENED. ON O2 AT 2LPM VIA NC, NO RESPIRATORY DISTRESS. IV LINE INTACT W/ IVF INFUSING WELL. LANDERS CATH IN PLACE DRAINING DARK YELLOW-COLORED URINE. DUE MEDS GIVEN TODAY. SAFETY MEASURES MAINTAINED. WILL ENDORSE TO PAYROLL OFFICER RN FOR MICHELLE.
[2021-07-02 18:55] LABS: CALCIUM, SERUM 7.9 mg/dL (8.5-10.1); CARBON DIOXIDE 22 mmol/L (21-32); CHLORIDE 95 mmol/L (98-107); CREATININE 10.1 mg/dL (0.6-1.3); GLUCOSE 124 mg/dL (74-106); UREA NITROGEN, BLOOD 96 mg/dL (7-18)
[2021-07-02 18:57] LABS: SODIUM SERUM 135 mmol/L (136-145)
[2021-07-02 19:12] LABS: EOSINOPHILS % (MANUAL) 5 % (0-4); LYMPHOCYTES % (MANUAL) 17 % (16-48); NEUTROPHILS % (MANUAL) 78 (42-76)
--- NOTE | 2021-07-02 19:28 | NUR ---
RN NOTES PATIENT CURRENTLY RESTING IN BED, EYES CLOSED, ABLE TO BE AWAKENED. ON O2 AT 2LPM VIA NC, NO RESPIRATORY DISTRESS. IV LINE INTACT W/ IVF INFUSING WELL. LANDERS CATH IN PLACE DRAINING DARK YELLOW-COLORED URINE. SAFETY MEASURES MAINTAINED. CALL LIGHT WITHIN REACH WILL CONTINUE TO MONITOR.
[2021-07-02 20:00] VITALS: BP 137/66
[2021-07-02] MEDS: MIRTAZAPINE 15 MG TABLET PO SCH (21:11)
--- NOTE | 2021-07-02 23:29 | NUR ---
RN NOTES PT REPORTING GENERALIZED PAIN PRN NORCO GIVEN WILL CONTINUE TO MONITOR.
[2021-07-03] VITALS (7 sets, daily range): BP systolic 82–111; BP diastolic 41–55
[2021-07-03] MEDS: Sodium Bicarbonate 150 MEQ in IV D5W 1,000 ML IV SCH ×2 (01:53→19:22)
--- NOTE | 2021-07-03 06:34 | NUR ---
MS RN NOTES PATIENT CURRENTLY RESTING IN BED, EYES CLOSED, ABLE TO BE AWAKENED. ON O2 AT 2LPM VIA NC, NO RESPIRATORY DISTRESS. IV LINE INTACT W/ IVF INFUSING WELL. LANDERS CATH IN PLACE DRAINING DARK YELLOW-COLORED URINE. SAFETY MEASURES MAINTAINED. ALL DUE MEDS GIVEN AND TOLERATED WELL. PT NPO FOR PERMCATH PLACEMENT THIS MORNING. SURGICAL CHECKLIST DONE CALL LIGHT WITHIN REACH WILL ENDORSE CARE TOD AY SHIFT NURSE.
[2021-07-03] MEDS ORDERED: ANESTHESIA TRAY IN PYXIS 1 EA TRAY MC ONE (07:12)
[2021-07-03] MEDS ORDERED: HEPARIN SODIUM, PORCINE 1,000 UNIT/ML VIAL ONE (07:15)
[2021-07-03] MEDS ORDERED: IOHEXOL 240MG/ML 0 ML IV ONE (07:15)
[2021-07-03] MEDS ORDERED: LIDOCAINE 1% INJ 50 ML MDV IJ ONE (07:16)
--- NOTE | 2021-07-03 07:30 | NUR ---
MS RN OPENING NOTES RECEIVED PATIENT RESTING ON BED AND A/O X3-4. ON O2 AT 2LPM VIA NASAL CANNULA SATURATING WELL. NO SOB NOTED. NOT IN DISTRESS. WITH NO COMPLAINTS OF PAIN AT THIS TIME. WITH IV ACCESS AT RIGHT HAND G24 WITH D5W WITH BICARB AT 70ML/HR INFUSING WELL. FOR PERMACATH PLACEMENT AT 8AM. CONSENT SIGNED AND SURGERY CHECKLIST DONE. SAFETY MEASURES IN PLACE. CALL LIGHT WITHIN REACH. BED ON LOWEST AND LOCKED POSITION, SIDE RAILS UP X2. WILL CONTINUE TO MONITOR.
[2021-07-03] MEDS: BLOOD SUGAR DIAGNOSTIC 1 EACH STRIP IN SCH ×4 (08:01→22:09)
[2021-07-03] MEDS ORDERED: FENTANYL PF 100MCG/2ML AMPUL ONE (08:01)
[2021-07-03] MEDS: METOPROLOL TARTRATE 25 MG TABLET PO SCH ×2 (09:00→21:00)
[2021-07-03] MEDS: MAGNESIUM OXIDE 400 MG TABLET PO SCH ×2 (09:42→16:37)
[2021-07-03] MEDS: SODIUM BICARBONATE 650 MG TABLET PO SCH ×3 (09:42→16:37)
[2021-07-03] MEDS: ASCORBIC ACID 500 MG TABLET PO SCH (09:42)
[2021-07-03] MEDS: PANTOPRAZOLE 40 MG TABLET.DR PO SCH (09:42)
[2021-07-03] MEDS: FERROUS SULFATE (325 MG) 325 MG/TAB TABLET PO SCH (09:42)
[2021-07-03] MEDS: CHOLECALCIFEROL 1,000 UNIT TABLET (VIT D3) PO SCH (09:42)
[2021-07-03] MEDS: LEVOTHYROXINE SODIUM 125 MCG TABLET PO SCH (09:42)
[2021-07-03] MEDS: MIDODRINE HCL (5MG) 5 MG TABLET PO SCH ×3 (09:43→16:37)
[2021-07-03] MEDS: CLOTRIMAZOLE 1% 15 GM TUBE TP SCH ×2 (10:05→16:45)
[2021-07-03 12:34] LABS: BASOPHILS # (AUTO) 0.1 K/uL (0.0-0.2); BASOPHILS % (AUTO) 0.5 % (0.0-2.0); EOSINOPHILS % (AUTO) 0.8 % (0.0-6.0); HEMATOCRIT 39 % (39-51); HEMOGLOBIN 12.5 g/dL (13.5-17.5); LYMPHOCYTES # (AUTO) 1.5 K/uL (0.8-4.8); LYMPHOCYTES % (AUTO) 10.9 % (20.0-44.0); MEAN CORPUSCULAR HGB CONC 32 g/dl (31.0-36.0); MEAN CORPUSCULAR VOLUME 97 fL (80-96); MONOCYTES # (AUTO) 0.3 K/uL (0.1-1.30); MONOCYTES % (AUTO) 2.5 % (2.0-12.0); NEUTROPHILS # (AUTO) 11.5 K/uL (1.8-8.9); NEUTROPHILS % (AUTO) 85.3 % (43.0-81.0); PLATELET COUNT (AUTO) 157 K/uL (150-450); RED BLOOD CELL COUNT(AUTO) 4.05 MIL/uL (4.5-6.0); WHITE BLOOD COUNT (AUTO) 13.5 K/uL (4.3-11.0)
[2021-07-03 12:42] LABS: CALCIUM, SERUM 8.1 mg/dL (8.5-10.1); CARBON DIOXIDE 22 mmol/L (21-32); CHLORIDE 94 mmol/L (98-107); GLUCOSE 121 mg/dL (74-106); MAGNESIUM 2.9 mg/dL (1.8-2.4); POTASSIUM 5.1 mmol/L (3.5-5.1); SODIUM SERUM 135 mmol/L (136-145)
[2021-07-03 13:07] LABS: CREATININE 10.4 mg/dL (0.6-1.3); UREA NITROGEN, BLOOD 99 mg/dL (7-18)
[2021-07-03 13:08] LABS: PHOSPHORUS 9.2 mg/dL (2.5-4.9)
[2021-07-03] MEDS ORDERED: CEFAZOLIN 1 GM in IV D5W 50 ML IV SCH (16:00)
[2021-07-03] MEDS: CEFAZOLIN 1 GM in IV D5W 50 ML IV SCH ×2 (16:02→23:24)
--- NOTE | 2021-07-03 18:10 | NUR ---
RN NOTES HEMODIALYSIS NURSE REPORTED TO HAVE STOPPED HEMODIALYSIS DUE TO PATIENT'S LOW BLOOD PRESSURE AT 88/52 WITH PULSE RATE AT 76BPM. MIDRODRINE WAS GIVEN TO RAISE BLOOD PRESSURE BUT BLOOD PRESSURE REMAINED LOW.
--- NOTE | 2021-07-03 18:46 | NUR ---
MS RN CLOSING NOTES PATIENT RESTING ON BED AND A/O X3-4. ON O2 AT 2LPM VIA NASAL CANNULA SATURATING WELL. NO SOB NOTED. NOT IN DISTRESS. WITH NO COMPLAINTS OF PAIN AT THIS TIME. WITH IV ACCESS AT RIGHT HAND G24 WITH D5W WITH BICARB AT 70ML/HR INFUSING WELL. WITH PERMACATH AT RIGHT CHEST WALL. SAFETY MEASURES IN PLACE. CALL LIGHT WITHIN REACH. BED ON LOWEST AND LOCKED POSITION, SIDE RAILS UP X2. WILL ENDORSE TO NEXT SHIFT FOR MICHELLE.
--- NOTE | 2021-07-03 19:27 | NUR ---
MS RN NOTES PATIENT RESTING ON BED AND A/O X3-4. ON O2 AT 2LPM VIA NASAL CANNULA SATURATING WELL. NO SOB NOTED. NOT IN DISTRESS. WITH NO COMPLAINTS OF PAIN AT THIS TIME. WITH IV ACCESS AT RIGHT HAND G24 WITH D5W WITH BICARB AT 70ML/HR INFUSING WELL. WITH PERMACATH AT RIGHT CHEST WALL. C/D/I SAFETY MEASURES IN PLACE. CALL LIGHT WITHIN REACH. BED ON LOWEST AND LOCKED POSITION, SIDE RAILS UP X2. WILL CONTINUE TO MONITOR.
[2021-07-03] MEDS: ACETAMINOPHEN 325 MG TABLET PO PRN (20:07)
[2021-07-03] MEDS: MIRTAZAPINE 15 MG TABLET PO SCH (22:00)
[2021-07-04] MEDS: HYDROCODONE/APAP 10/325MG TABLET PO PRN (03:31)
--- NOTE | 2021-07-04 03:41 | NUR ---
MS RN NOTES PRN NORCO GIVEN FOR GENERALIZED BODY PAIN WILL CONTINUE TO MONITOR.
--- NOTE | 2021-07-04 06:58 | NUR ---
MS RN NOTES PATIENT RESTING ON BED AND A/O X3-4. ON O2 AT 2LPM VIA NASAL CANNULA SATURATING WELL. NO SOB NOTED. NOT IN DISTRESS. WITH NO COMPLAINTS OF PAIN AT THIS TIME. WITH MIDLINE TO RIGHT UPPER ARM WITH D5W WITH BICARB AT 70ML/HR INFUSING WELL. WITH PERMACATH AT RIGHT CHEST WALL. C/D/I SAFETY MEASURES IN PLACE. CALL LIGHT WITHIN REACH. BED ON LOWEST AND LOCKED POSITION, SIDE RAILS UP X2. WILL ENDORSE CARE TO DAY SHIFT NURSE.
[2021-07-04] MEDS: BLOOD SUGAR DIAGNOSTIC 1 EACH STRIP IN SCH ×4 (07:30→22:39)
--- NOTE | 2021-07-04 07:30 | NUR ---
MS RN OPENING NOTES RECEIVED PATIENT RESTING ON BED AND A/O X3-4. ON O2 AT 2LPM VIA NASAL CANNULA SATURATING WELL. NO SOB NOTED. NOT IN DISTRESS. WITH NO COMPLAINTS OF PAIN AT THIS TIME. WITH MIDLINE AT RIGHT UPPER ARM WITH D5W WITH BICARB AT 70ML/HR INFUSING WELL. WITH PERMACATH AT RIGHT CHEST WALL. SAFETY MEASURES IN PLACE. CALL LIGHT WITHIN REACH. BED ON LOWEST AND LOCKED POSITION, SIDE RAILS UP X2. WILL CONTINUE TO MONITOR.
[2021-07-04] MEDS: PANTOPRAZOLE 40 MG TABLET.DR PO SCH (07:59)
[2021-07-04] MEDS: LEVOTHYROXINE SODIUM 125 MCG TABLET PO SCH (07:59)
[2021-07-04] MEDS: MIDODRINE HCL (5MG) 5 MG TABLET PO SCH ×3 (08:00→16:43)
[2021-07-04 08:18] VITALS: BP 72/48
[2021-07-04] MEDS: METOPROLOL TARTRATE 25 MG TABLET PO SCH ×2 (09:00→20:59)
[2021-07-04] MEDS ORDERED: IV NS 0.9% 500 ML BAG IV ONE (09:30)
[2021-07-04 09:35] LABS: BASOPHILS # (AUTO) 0.1 K/uL (0.0-0.2); BASOPHILS % (AUTO) 0.4 % (0.0-2.0); EOSINOPHILS % (AUTO) 0.8 % (0.0-6.0); HEMATOCRIT 34 % (39-51); HEMOGLOBIN 10.6 g/dL (13.5-17.5); LYMPHOCYTES # (AUTO) 2.2 K/uL (0.8-4.8); LYMPHOCYTES % (AUTO) 12.9 % (20.0-44.0); MEAN CORPUSCULAR HGB CONC 31 g/dl (31.0-36.0); MEAN CORPUSCULAR VOLUME 100 fL (80-96); MONOCYTES # (AUTO) 0.7 K/uL (0.1-1.30); MONOCYTES % (AUTO) 3.9 % (2.0-12.0); NEUTROPHILS # (AUTO) 13.8 K/uL (1.8-8.9); PLATELET COUNT (AUTO) 126 K/uL (150-450); RED BLOOD CELL COUNT(AUTO) 3.42 MIL/uL (4.5-6.0); WHITE BLOOD COUNT (AUTO) 16.9 K/uL (4.3-11.0)
[2021-07-04] MEDS: SODIUM BICARBONATE 650 MG TABLET PO SCH ×3 (09:38→16:42)
[2021-07-04] MEDS: MAGNESIUM OXIDE 400 MG TABLET PO SCH ×2 (09:38→16:43)
[2021-07-04] MEDS: FERROUS SULFATE (325 MG) 325 MG/TAB TABLET PO SCH (09:38)
[2021-07-04] MEDS: CHOLECALCIFEROL 1,000 UNIT TABLET (VIT D3) PO SCH (09:38)
[2021-07-04] MEDS: ASCORBIC ACID 500 MG TABLET PO SCH (09:39)
[2021-07-04] MEDS: CLOTRIMAZOLE 1% 15 GM TUBE TP SCH ×2 (09:44→17:09)
[2021-07-04 09:45] LABS: CALCIUM, SERUM 7.8 mg/dL (8.5-10.1); CARBON DIOXIDE 21 mmol/L (21-32); CHLORIDE 95 mmol/L (98-107); GLUCOSE 123 mg/dL (74-106); MAGNESIUM 2.8 mg/dL (1.8-2.4); SODIUM SERUM 136 mmol/L (136-145)
[2021-07-04 09:52] LABS: UREA NITROGEN, BLOOD 95 mg/dL (7-18)
[2021-07-04 09:53] LABS: CREATININE 10.2 mg/dL (0.6-1.3)
[2021-07-04 09:54] LABS: PHOSPHORUS 9.2 mg/dL (2.5-4.9)
[2021-07-04] MEDS ORDERED: KETOROLAC TROMETHAMINE INJ 30 MG/ML VIAL ONE (11:46)
[2021-07-04] MEDS ORDERED: KETOROLAC TROMETHAMINE INJ 30 MG/ML VIAL IM PRN (12:00)
[2021-07-04] MEDS: Sodium Bicarbonate 150 MEQ in IV D5W 1,000 ML IV SCH (12:49)
[2021-07-04 15:53] VITALS: BP 73/40
[2021-07-04] MEDS: ALBUMIN 25% 25 GM in PREMIX 1 EA IV SCH ×2 (16:46→21:12)
--- NOTE | 2021-07-04 18:55 | NUR ---
MS RN CLOSING NOTES PATIENT RESTING ON BED AND A/O X3. ON O2 AT 2LPM VIA NASAL CANNULA SATURATING WELL. NO SOB NOTED. NOT IN DISTRESS. WITH NO COMPLAINTS OF PAIN AT THIS TIME. WITH MIDLINE AT RIGHT UPPER ARM WITH D5W WITH BICARB AT 70ML/HR INFUSING WELL. WITH PERMACATH AT RIGHT CHEST WALL. ON DNR/DNI STATUS. SAFETY MEASURES IN PLACE. CALL LIGHT WITHIN REACH. BED ON LOWEST AND LOCKED POSITION, SIDE RAILS UP X2. WILL ENDORSE TO NEXT SHIFT FOR MICHELLE.
--- NOTE | 2021-07-04 19:30 | NUR ---
MS RN OPENING NOTES RECEIVED PATIENT AWAKE IN BED RESTING ON BED. A/O X3-4. ON O2 AT 2LPM VIA NASAL CANNULA WITH NO RESPIRATORY DISTRESS NOTED. RIGHT UPPER ARM MIDLINE NOTED, WHICH IS INTACT, PATENT, AND FLUSHING WELL. ON DNR/DNI STATUS. SAFETY MEASURES IN PLACE: BED LOCKED, BED ALARM ON, SR UP X3, AND CALL LIGHT WITHIN REACH OF THE PATIENT. WILL CONTINUE TO MONITOR THE PATIENT.
[2021-07-04 20:00] VITALS: BP 86/39
[2021-07-04] MEDS: MIRTAZAPINE 15 MG TABLET PO SCH (21:09)
--- NOTE | 2021-07-04 22:37 | NUR ---
MS RN NOTES PATIENT'S BLOOD SUGAR AT THIS TIME WAS 122MG/DL. WILL CONTINUE TO MONITOR THE PATIENT.
[2021-07-05] MEDS: Sodium Bicarbonate 150 MEQ in IV D5W 1,000 ML IV SCH ×2 (02:29→19:36)
[2021-07-05] MEDS: ALBUMIN 25% 25 GM in PREMIX 1 EA IV SCH ×2 (03:05→09:09)
--- NOTE | 2021-07-05 06:46 | NUR ---
MS RN NOTES PATIENT'S BLOOD SUGAR AT THIS TIME WAS 110MG/DL. WILL CONTINUE TO MONITOR THE PATIENT.
[2021-07-05] MEDS: BLOOD SUGAR DIAGNOSTIC 1 EACH STRIP IN SCH ×4 (06:47→22:00)
[2021-07-05 06:51] LABS: BASOPHILS # (AUTO) 0.1 K/uL (0.0-0.2); BASOPHILS % (AUTO) 0.6 % (0.0-2.0); EOSINOPHILS % (AUTO) 1.2 % (0.0-6.0); HEMATOCRIT 30 % (39-51); HEMOGLOBIN 9.7 g/dL (13.5-17.5); LYMPHOCYTES # (AUTO) 2.7 K/uL (0.8-4.8); MEAN CORPUSCULAR HGB CONC 33 g/dl (31.0-36.0); MEAN CORPUSCULAR VOLUME 98 fL (80-96); MONOCYTES # (AUTO) 0.5 K/uL (0.1-1.30); MONOCYTES % (AUTO) 2.6 % (2.0-12.0); NEUTROPHILS # (AUTO) 14.5 K/uL (1.8-8.9); NEUTROPHILS % (AUTO) 80.6 % (43.0-81.0); PLATELET COUNT (AUTO) 174 K/uL (150-450); RED BLOOD CELL COUNT(AUTO) 3.02 MIL/uL (4.5-6.0)
--- NOTE | 2021-07-05 07:00 | NUR ---
MS RN CLOSING NOTES PATIENT WAS SEEN AWAKE IN BED. PATIENT'S A/O X3. ON O2 AT 2LPM VIA NASAL CANNULA WITH NO RESPIRATORY DISTRESS NOTED. RIGHT UPPER ARM MIDLINE NOTED, WHICH IS INTACT, PATENT, AND FLUSHING WELL. ON DNR/DNI STATUS. SAFETY MEASURES IN PLACE: BED LOCKED, BED ALARM ON, SR UP X3, AND CALL LIGHT WITHIN REACH OF THE PATIENT. WILL ENDORSE CARE TO THE DAY SHIFT NURSE.
--- NOTE | 2021-07-05 07:25 | NUR ---
RN OPENING NOTE RECEIVED PATIENT IN BED. ON 02 AT 2 LPM VIA NC, NO SOB NOTED. IN NO APPARENT DISTRESS. IV ACCESS ON REBEKAH MIDLINE #18 G, D5 Na Bicarb RUNNING AT 70 ML/HR, INTACT AND PATENT. RCW PERMACATH C/D/I. SAFETY MEASURES MAINTAINED. BED IN LOWEST POSITION, BRAKES LOCKED. SIDE RAILS UP X2. CALL LIGHT WITHIN REACH. WILL CONTINUE PLAN OF CARE.
[2021-07-05] MEDS ORDERED: KETOROLAC TROMETHAMINE INJ 30 MG/ML VIAL IV PRN (07:30)
[2021-07-05 08:00] VITALS: BP 128/94
[2021-07-05] MEDS: FERROUS SULFATE (325 MG) 325 MG/TAB TABLET PO SCH (08:06)
[2021-07-05] MEDS: METOPROLOL TARTRATE 25 MG TABLET PO SCH ×2 (08:07→21:00)
[2021-07-05] MEDS: CHOLECALCIFEROL 1,000 UNIT TABLET (VIT D3) PO SCH (08:07)
[2021-07-05] MEDS: PANTOPRAZOLE 40 MG TABLET.DR PO SCH (08:07)
[2021-07-05] MEDS: MIDODRINE HCL (5MG) 5 MG TABLET PO SCH ×3 (08:07→16:17)
[2021-07-05] MEDS: ASCORBIC ACID 500 MG TABLET PO SCH (08:07)
[2021-07-05] MEDS: SODIUM BICARBONATE 650 MG TABLET PO SCH ×3 (08:08→16:12)
[2021-07-05] MEDS: MAGNESIUM OXIDE 400 MG TABLET PO SCH ×2 (08:08→16:12)
[2021-07-05] MEDS: LEVOTHYROXINE SODIUM 125 MCG TABLET PO SCH (08:08)
[2021-07-05 08:52] LABS: CALCIUM, SERUM 7.9 mg/dL (8.5-10.1); CARBON DIOXIDE 25 mmol/L (21-32); CHLORIDE 94 mmol/L (98-107); GLUCOSE 118 mg/dL (74-106); MAGNESIUM 3.1 mg/dL (1.8-2.4); POTASSIUM 4.7 mmol/L (3.5-5.1); SODIUM SERUM 136 mmol/L (136-145)
[2021-07-05 09:00] LABS: UREA NITROGEN, BLOOD 98 mg/dL (7-18)
[2021-07-05 09:01] LABS: CREATININE 10.4 mg/dL (0.6-1.3); PHOSPHORUS 9.1 mg/dL (2.5-4.9)
[2021-07-05] MEDS: CLOTRIMAZOLE 1% 15 GM TUBE TP SCH ×2 (11:20→16:18)
--- NOTE | 2021-07-05 16:00 | NUR ---
RN NOTE 21 MINS AFTER HEMODIALYSIS. BP WAS DROPPING. PER JAIRO DIALYSIS NURSE, PT IS NOT TOLERATING HD AND NEEDS TO STOP THE TREATMENT. ROSARIO HEARD WAS INFORMED.
--- NOTE | 2021-07-05 16:55 | NUR ---
RN JES MOORE FROM THE LAB CALLED REGARDING A CRITICAL VALUE INR >10, PT 100, PTT 72.4 ROSALINA CALDERONCY IS MADE AWARE. AWAITING FOR ORDERS. Addendum: 07/05/21 at 1857 by ALEJANDRA TURCIOS RN NO NEW ORDERS
--- NOTE | 2021-07-05 18:57 | NUR ---
RN CLOSING NOTE PATIENT RESTING IN BED. ON 02 AT 2 LPM VIA NC, DENIES SOB. IN NO APPARENT DISTRESS. IV ACCESS ON REBEKAH MIDLINE #18 G, D5 Na Bicarb RUNNING AT 70 ML/HR, INTACT AND PATENT. RCW PERMACATH C/D/I. DUE MEDS GIVEN ORDERED. ALL NEEDS HAVE BEEN MET AND ATTENDED. SAFETY MEASURES MAINTAINED. BED IN LOWEST POSITION, BRAKES LOCKED. SIDE RAILS UP X2. CALL LIGHT WITHIN REACH. WILL ENDORSE CONTINUITY OF CARE TO ONCOMING SHIFT.
--- NOTE | 2021-07-05 19:45 | NUR ---
MS RN NOTES RECEIVED RESTING COMFORTABLY ON BED A/O X3,OPEN EYES,IVF D5W WITH NA BICARB AT 70ML/HR RATE,INFUSING VIA REBEKAH MIDLINE.FAMILY MEMBERS AT BEDSIDE, LANDERS CATH IN PLACE DRAINS SCANTY OUTPUT,ON DIALYSIS TREATMENT,UNABLE TO COMPLETE TREATMENT REPORTED FOR IT DROPS HIS BLOOD PRESSURE.DNR/DNI STATUS.WILL CONTINUE TO MONITOR STATUS.
--- NOTE | 2021-07-05 19:50 | NUR ---
MS RN NOTES DR JSAPAL HEARD,WITH DPOA FOR PATIENT AND FAMILY DECIED TO PUT PATIENT ON COMFORT MEASURES.
--- NOTE | 2021-07-05 20:05 | NUR ---
MS RN NOTES DR PEDERSEN WAS [place] WAS TO INFORM REGARDING FAMILY/DPOA PLAN,AWAITING TO CALL BACK
--- NOTE | 2021-07-05 20:25 | NUR ---
MS RN NOTES DR PEDERSEN CALLED BACK,MADE AWARE OF FAMILY/DPOA PLAN FOR THE PATIENT, WITH ORDER NOTED AND CARRIED OUT.FAMILY MADE AWARE.
[2021-07-05 20:32] VITALS: BP 92/44
[2021-07-05] MEDS ORDERED: MORPHINE SULFATE PF DRIP 250 MG in IV D5W 240 ML IV PRN (21:00)
[2021-07-05] MEDS ORDERED: MORPHINE SULFATE/PF 30 MG in IV NS 0.9% 27 ML, PCA TOTAL VOLUME 1 BAG IV PRN (21:30)
[2021-07-05 22:00] VITALS: BP 92/44
[2021-07-05] MEDS: MIRTAZAPINE 15 MG TABLET PO SCH (22:00)
[2021-07-05] MEDS ORDERED: MORPHINE SULFATE INJ 10 MG/ML DISP.SYRIN ONE (22:33)
[2021-07-05] MEDS ORDERED: KEY,NONCONTROL,TO KEEP IN PYXI 1 EA MC ONE (23:49)
--- NOTE | 2021-07-06 00:36 | NUR ---
MS RN NOTES STARTED ON MORPHINE DRIP AT 2MG/HR VIA APPRAISER PUMP FOR COMFORT
--- NOTE | 2021-07-06 07:19 | NUR ---
RN OPENING NOTES RECEIVED PATIENT IN BED. ON 02 AT 2 LPM VIA NC, NO SOB NOTED. IN NO APPARENT DISTRESS. IV ACCESS ON REBEKAH MIDLINE #18 G, INTACT AND PATENT, RUNNING MORPHINE DRIP AT 2MG/HR FACILITY SERVICE ASSOCIATE PUMP FOR COMFORT MEASURE. RCW PERMACATH C/D/I. SAFETY MEASURES MAINTAINED. BED IN LOWEST POSITION, BRAKES LOCKED. SIDE RAILS UP X2. CALL LIGHT WITHIN REACH. WILL CONTINUE PLAN OF CARE.
[2021-07-06] MEDS: CLOTRIMAZOLE 1% 15 GM TUBE TP SCH ×2 (08:17→16:07)
[2021-07-06] MEDS ORDERED: LORAZEPAM INJ 2 MG/ML VIAL IV PRN (12:00)
[2021-07-06] MEDS ORDERED: MORPHINE SULFATE/PF 30 MG in IV NS 0.9% 27 ML, PCA TOTAL VOLUME 1 BAG IV PRN (12:00)
[2021-07-06] MEDS ORDERED: MORPHINE SULFATE PF DRIP 250 MG in IV D5W 240 ML IV PRN (12:30)
[2021-07-06] MEDS ORDERED: KEY,NONCONTROL,TO KEEP IN PYXI 1 EA MC ONE (14:08)
--- NOTE | 2021-07-06 17:01 | NUR ---
RN NOTES RECEIVED ORDER FOR DISCHARGE FOR HOSPICE, WILL COMPLETE DISCHARGE, HOSPICE NURSE GIVES NEW ORDER, WILL BE FAX TO ADMITTING TO PHARMACY, CONTINUE THE SAME TREATMENT AT THIS TIME.
--- NOTE | 2021-07-07 05:47 | NUR ---
Contacted [employer]. Body not acceptable for donation. Hospital may release body. Case #[id number]
== END 2021-07-06 18:12 | disposition hospice, inpatient (51) | DRG 871 ==
LOC: ER 16:36 → TELE1 20:45 → MEDSG1 06-25 17:45 → MED 06-28 22:30
PROVIDERS: ADMIT Hospitalist; ATTEND Nurse Practitioner Acute Care
PROC: 0W9G3ZZ Drainage of Peritoneal Cavity, Percutaneous Approach (ICD-10-PCS; principal; 2021-06-24)
PROC: 0JH63XZ Insertion of Tunneled Vascular Access Device into Chest Subcutaneous Tissue and Fascia, Percutaneous Approach (ICD-10-PCS; 2021-07-03)
PROC: 02HV33Z Insertion of Infusion Device into Superior Vena Cava, Percutaneous Approach (ICD-10-PCS; 2021-07-03)
PROC: B518YZA Fluoroscopy of Superior Vena Cava using Other Contrast, Guidance (ICD-10-PCS; 2021-07-03)
PROC: 5A1D70Z Performance of Urinary Filtration, Intermittent, Less than 6 Hours Per Day (ICD-10-PCS; 2021-07-03)
PROC: 05H533Z Insertion of Infusion Device into Right Subclavian Vein, Percutaneous Approach (ICD-10-PCS; 2021-07-04)
PROC: B546ZZA Ultrasonography of Right Subclavian Vein, Guidance (ICD-10-PCS; 2021-07-04)
DX: A41.9 Sepsis, unspecified organism (principal); N17.0 Acute kidney failure with tubular necrosis; J96.01 Acute respiratory failure with hypoxia; J15.9 Unspecified bacterial pneumonia; E87.1 Hypo-osmolality and hyponatremia; D68.9 Coagulation defect, unspecified; E87.2 Acidosis; N39.0 Urinary tract infection, site not specified; R18.8 Other ascites; J90 Pleural effusion, not elsewhere classified; J98.11 Atelectasis; C78.7 Secondary malignant neoplasm of liver and intrahepatic bile duct; C68.9 Malignant neoplasm of urinary organ, unspecified; G93.40 Encephalopathy, unspecified; L03.90 Cellulitis, unspecified; I13.0 Hypertensive heart and chronic kidney disease with heart failure and stage 1 through stage 4 chronic kidney disease, or unspecified chronic kidney disease; I50.32 Chronic diastolic (congestive) heart failure; G89.29 Other chronic pain; E78.5 Hyperlipidemia, unspecified; Z20.822 Contact with and (suspected) exposure to COVID-19; D53.9 Nutritional anemia, unspecified; E03.9 Hypothyroidism, unspecified; E11.22 Type 2 diabetes mellitus with diabetic chronic kidney disease; E66.01 Morbid (severe) obesity due to excess calories; E83.51 Hypocalcemia; E83.42 Hypomagnesemia; E86.0 Dehydration; E86.1 Hypovolemia; E87.5 Hyperkalemia; I25.10 Atherosclerotic heart disease of native coronary artery without angina pectoris; I48.0 Paroxysmal atrial fibrillation; N18.30 Chronic kidney disease, stage 3 unspecified; Z66 Do not resuscitate; L89.626 Pressure-induced deep tissue damage of left heel; L89.616 Pressure-induced deep tissue damage of right heel; Z68.39 Body mass index [BMI] 39.0-39.9, adult; F10.21 Alcohol dependence, in remission; R59.1 Generalized enlarged lymph nodes; D50.9 Iron deficiency anemia, unspecified; F19.11 Other psychoactive substance abuse, in remission; I87.2 Venous insufficiency (chronic) (peripheral); K29.80 Duodenitis without bleeding; K29.70 Gastritis, unspecified, without bleeding; K80.20 Calculus of gallbladder without cholecystitis without obstruction; E83.9 Disorder of mineral metabolism, unspecified; Z79.4 Long term (current) use of insulin; Z79.01 Long term (current) use of anticoagulants; Z91.19 Patient's noncompliance with other medical treatment and regimen
CPT/HCPCS: 36415; 71045-TC; 71250-TC; 76770-TC; 76856-TC; 76942-TC; 80048-TC; 80053-TC; 80061-TC; 80076-TC; 80202-TC; 82247-TC; 82248-TC; 82550-TC; 82728-TC; 82962-TC; 82977-TC; 83605-TC; 83615-TC; 83690-TC; 83735-TC; 83880; 84100-TC; 84155-TC; 84443-TC; 84484-TC; 85025-TC; 85378-TC; 85610-TC; 85730-TC; 86140-TC; 86704; 86705; 86706; 86803; 87040-TC; 87081-TC; 87340; 90935-TC; 93970-TC; 97116-TC; 97530-TC; A4216; A6253; C1750; C1757; C1769; C1894; G0378; J0690; J1644; J1815; J1885; J1940; J2270; J2274; J2405; J2543; J2704; J3010; J3370; J3475; J3490; J7030; J7040; J7050; J7060; J7070; P9047; Q9966; U0003

== ENCOUNTER 2021-07-06 17:57 | Inpatient (IN) | payer OTHER, MEDICARE, BC ==
[~2021-07-06] VITALS: Ht 170.2 cm; Wt 115.7 kg
[~2021-07-06 17:57] MED LIST changes: +ACET-868 PO; +INSU100V3 SQ; +MIRT-90 PO; +ONDA4TAB5 PO; +TYL2T PO
[2021-07-06] MEDS ORDERED: MORPHINE SULFATE PF DRIP 250 MG in IV D5W 240 ML IV PRN (18:30)
[2021-07-06] MEDS ORDERED: LORAZEPAM INJ 2 MG/ML VIAL IVP PRN (18:30)
--- NOTE | 2021-07-06 18:36 | NUR ---
MS DAY CARE ASSISTANT NOTE PATIENT RESTING IN BED. PATIENT IS A/O X0. PATIENT IS BREATHING NONLABORED, BUT BRADYPNEA ON 02 AT 2 LPM VIA NC, NO SOB NOTED. DOES NOT SHOW SIGNS OF PAIN AT THIS TIME. PATIENT ADMITTED TO HOSPICE, ORDERS SENT TO PHARMACY. IV ACCESS ON REBEKAH MIDLINE #18 G, INTACT AND PATENT, RUNNING MORPHINE DRIP AT 2MG/HR CARPET CLEANING TECHNICIAN PUMP FOR COMFORT MEASURE. RCW PERMACATH C/D/I. SAFETY MEASURES MAINTAINED. BED IN LOWEST POSITION, BRAKES LOCKED. SIDE RAILS UP X2. CALL LIGHT WITHIN REACH. WILL ENDORSE CARE TO THE DRY CLEANER HAND NURSE.
[2021-07-06 20:00] VITALS: BP 94/41
--- NOTE | 2021-07-06 20:00 | NUR ---
RN OPENING NOTES Patient is alert to firm touch/ light pain only not oriented. Excess secretions suctioned. Currently on Morphine drip at 2mg/hr RR is 11breaths/min. No signs of distress. Minimal output to bryant cath. Continue with comfort measures only.
[2021-07-07] VITALS: BP 135/70
[2021-07-07] MEDS ORDERED: KEY,NONCONTROL,TO KEEP IN PYXI 1 EA MC ONE (06:21)
--- NOTE | 2021-07-07 07:25 | NUR ---
Patient found non-responsive with no pulse via palpation or auscultation, no breathing, pupils dilated at 0540. tobacco curer Winter Griffiths pronounced patient as . Nursing forest supervisor notified at 0545, hospice notified at 0548, DPOA/family notified at 0540 and will pickler helper belongings, mortuary notified at 0655, MD notified at 0600. Patient cleaned up, all lines removed, bagged, labeled. [facility] ASSISTANT LOAN PROCESSOR Morphine drip disposed of with witness RN. Per [facility] [employer] we can release the body as pt. is not a candidate for organ or tissue donation. Case # [id number].
--- NOTE | 2021-07-07 07:50 | NUR ---
Patient belongings sent down to security to [facility] with body.
== END 2021-07-07 05:40 | DRG 951 ==
LOC: HOSPICE 17:57
PROVIDERS: ADMIT Registered Nurse; ATTEND Registered Nurse
DX: Z51.5 Encounter for palliative care (principal); A41.9 Sepsis, unspecified organism; N17.0 Acute kidney failure with tubular necrosis; J18.9 Pneumonia, unspecified organism; J96.01 Acute respiratory failure with hypoxia; E87.1 Hypo-osmolality and hyponatremia; L03.90 Cellulitis, unspecified; N39.0 Urinary tract infection, site not specified; C78.7 Secondary malignant neoplasm of liver and intrahepatic bile duct; C68.9 Malignant neoplasm of urinary organ, unspecified; I11.0 Hypertensive heart disease with heart failure; E11.9 Type 2 diabetes mellitus without complications; E83.42 Hypomagnesemia; E78.5 Hyperlipidemia, unspecified; E66.01 Morbid (severe) obesity due to excess calories; E86.0 Dehydration; E87.5 Hyperkalemia; I48.0 Paroxysmal atrial fibrillation; Z20.822 Contact with and (suspected) exposure to COVID-19; Z91.19 Patient's noncompliance with other medical treatment and regimen; E83.51 Hypocalcemia; I95.9 Hypotension, unspecified; Z68.39 Body mass index [BMI] 39.0-39.9, adult; F10.21 Alcohol dependence, in remission; Z66 Do not resuscitate
CPT/HCPCS: A6253; G0378; J2274; J7030; J7060